=== PATIENT | male | born 1950 | race Caucasian/White ===

== ENCOUNTER 2017-04-06 09:19 | Inpatient (IN) | payer OTHER ==
--- NOTE | 2017-04-06 09:32 | CPEKG ---
Heart Rate: 50 RR Interval: 1200 P-R Interval: 184 QRSD Interval: 110 QT Interval: 460 QTC Interval: 420 P [place]: 59 QRS [place]: -5 T Wave [place]: 19 EKG Severity - ABNORMAL ECG - EKG Impression: SINUS RHYTHM EKG Impression: NONSPECIFIC INTRAVENTRICULAR CONDUCTION DELAY Electronically Signed By: Jemal Peace 06-Apr-2017 15:33:43
[2017-04-06] MEDS ORDERED: NS 1,000 ML IV ONE (09:33)
[2017-04-06] MEDS ORDERED: fentaNYL 100 MCG/2 ML INJ ONE (10:14)
[2017-04-06] MEDS ORDERED: FAMOTIDINE 20 MG/NACL/50 ML BAG IV ONE (10:14)
[2017-04-06] MEDS ORDERED: ONDANSETRON 4 MG/2 ML VIAL ONE (10:14)
[2017-04-06] MEDS ORDERED: fentaNYL 100 MCG/2 ML INJ IVP ONE ×3 (10:22→12:00)
[2017-04-06] MEDS ORDERED: ONDANSETRON 4 MG/2 ML VIAL IVP ONE ×3 (10:22→10:53)
[2017-04-06] MEDS ORDERED: levETIRAcetam 1,000 MG in NS 100 ML IV ONE (10:29)
[2017-04-06] MEDS ORDERED: niCARdipine/NACL 200 ML IV SCH (10:30)
[2017-04-06] MEDS ORDERED: niCARdipine/NACL 200 ML IV ONE (10:30)
[2017-04-06] MEDS ORDERED: FAMOTIDINE 20 MG/2 ML SDV IVP ONE (10:30)
[2017-04-06] MEDS ORDERED: IOPAMIDOL (ISOVUE 370) 100 ML BTL IV ONE (10:37)
--- NOTE | 2017-04-06 10:41 | EDPHY ---
H & P Time Seen by Provider: 04/06/17 09:32 HPI/ROS: HPI Headache. 67-year-old male by ambulance from home. Patient reports sudden onset worst headache of his life at 9:00 a.m.. Reports this was about a 0.5 hour after he took Viagra. He has never had headaches in the past. He denies any significant past medical history. He is not on any anticoagulant agents. He does take an aspirin daily. ROS: Constitutional: No fever, no chills. No weakness. Eyes: No discharge. No changes in vision. ENT: No sore throat. No nasal congestion or rhinorrhea. Respiratory: No cough. No shortness of breath. Cardiac: No chest pain, no palpitations. Gastrointestinal: No abdominal pain, no vomiting, no diarrhea. Genitourinary: No hematuria. No dysuria or increased frequency with urination. Musculoskeletal: No back pain. No neck pain. No myalgias or arthralgias. Skin: No rashes. Neurological: As above. No focal weakness or altered sensation. Past medical history: No significant past medical history. As above. Takes Crestor. Social history: Nonsmoker. Occasional alcohol. Here with his . Physical Exam: General Appearance: Alert, appears uncomfortable. This patient is responding to questions appropriately and in full sentences. This patient appears well- hydrated and well-nourished. Eyes: Pupils equal and round at 3-2 mm bilaterally, no pallor or injection. No lid edema, erythema or injection. ENT, Mouth: Mucous membranes are moist. The pharyngeal tissues are unremarkable. No edema or swelling. No asymmetry suggestive of abscess. No erythema or exudates. No toe lacerations or abrasions. Respiratory: There are no retractions, lungs are clear to auscultation with good air movement bilaterally. Cardiovascular: Regular rate and rhythm. No murmur. Gastrointestinal: Abdomen is soft and nontender, no masses, bowel sounds normal. No focal tenderness at McBurney's point. No Torres sign. Neurological: Motor sensory function is grossly intact. Cranial nerves are normal. Skin: Warm and dry, no rashes. Musculoskeletal: Neck is supple and nontender. Extremities are symmetrical. All joints range without pain or impingement. Psychiatric: No agitation. No depression. Database: EKG: EKG time is 9:25 a.m.; EKG shows a narrow complex normal sinus rhythm with a ventricular rate of 50. Nonspecific intraventricular conduction delay. The MN , QRS, QT intervals are within normal limits. There are no ST-T wave changes indicative of ischemic or injury pattern. No evidence of right heart strain. Interpreted by me. Imaging: CT of head without contrast: Extensive subarachnoid hemorrhage. Results were discussed with staff radiologist Dr. Jordan Cabral. CT angiogram of head and neck: No aneurysm found. Results were discussed with staff radiologist Dr. Jordan Cabral. He will discuss with Dr. Richard This. Procedures: Emergency department course: 10:10 p.m., spoke with on-call neurosurgeon Dr. Richard. He will see this patient shortly in the emergency department. He requested an ICU bed. He requested CT angiogram of the head and the neck. This has been ordered. He wants the patient systolic blood pressure tightly controlled to less than 130. Patient has been given IV fentanyl in 50 mcg doses for pain control. This will be repeated as needed for pain control. His blood pressure has come down into the 120 systolic. There is a nicardipine drip at the bedside and ready to go for further blood pressure control as needed. Patient also given 4 mg of IV Zofran and 20 mg of IV Pepcid. Head of the bed was elevated to 45 degrees. Patient placed on a site monitor. 10:30 a.m., patient re-evaluated. No change in neurologic status. Blood pressure currently 126/82. 10:45 a.m., Dr. Richard at bedside. 11:20 a.m., patient's blood pressures have remained stable in the 120 systolic. Patient admitted under the care of Dr. Richard to the ICU. Repeat neurologic Assessment prior to admission is unchanged from prior. Patient admitted to the ICU in stable condition. Differential Diagnosis: The differential diagnosis on this patient includes but is not limited to subarachnoid hemorrhage. Migraine headache, meningitis, encephalitis, cavernous sinus thrombosis, sagittal sinus thrombosis, malignancy, temporal arteritis unlikely. This represents a partial list of diagnoses considered. These considerations are based on history, physical exam, past history, reassessment and diagnostic testing. Smoking Status: Never smoked Constitutional: Initial Vital Signs Temperature (C) 36.5 C 04/06/17 09:30 Heart Rate 56 L 04/06/17 09:30 Respiratory Rate 20 04/06/17 09:30 Blood Pressure 158/98 H 04/06/17 09:30 O2 Sat (%) 92 04/06/17 09:30 O2 Delivery Mode Nasal Cannula O2 (L/minute) 4 Allergies/Adverse Reactions: No Known Drug Allergies Allergy (Verified 04/06/17 09:39) Home Medications: Medication Instructions Recorded Alfuzosin HCl [Uroxatral] 10 mg PO DAILY 04/06/17 Aspirin EC [Aspirin EC 81 mg (*)] 81 mg PO HS 04/06/17 Cetirizine [ZyrTEC 10 mg (*)] 10 mg PO DAILY 04/06/17 Fenofibrate [Tricor 145 mg (*)] 145 mg PO DAILY 04/06/17 Finasteride [Propecia] 1 mg PO HS 04/06/17 Herbals/Supplements -Info Only 1 ea PO DAILY 04/06/17 Ibuprofen [Advil] 200 mg PO PRN PRN 04/06/17 Melatonin [Melatonin 5 mg] 5 mg PO HS PRN 04/06/17 Meloxicam [Mobic 15 mg] 15 mg PO DAILY 04/06/17 Mirabegron [Myrbetriq] 50 mg PO HS 04/06/17 Montelukast Sodium [Singulair 10 10 mg PO DAILY 04/06/17 mg (*)] Nebivolol HCl [Bystolic 5 mg (*)] 5 mg PO DAILY 04/06/17 Rosuvastatin Calcium [Crestor 20mg 20 mg PO HS 04/06/17 (*)] Sildenafil Citrate [Viagra 50 MG 25 mg PO PRN PRN 04/06/17 (*)] diphenhydrAMINE [Benadryl 25 MG 25 mg PO PRN PRN 04/06/17 (*)] Medical Decision Making Critical Care Time: I spent a total of 42 minutes of critical care time in obtaining history, performing a physical exam, bedside monitoring of interventions, collecting and interpreting tests and discussion with consultants but not including time spent performing procedures. - Data Points Laboratory Results: Laboratory Results 04/06/17 09:30 04/06/17 09:30 Medications Given: Discontinued Medications Famotidine (Pepcid) 20 mg IVP EDNOW ONE Stop: 04/06/17 10:31 Last Admin: 04/06/17 10:32 Dose: 20 mg Fentanyl (Sublimaze) 50 mcg IVP EDNOW ONE Stop: 04/06/17 10:24 Last Admin: 04/06/17 10:32 Dose: 50 mcg Fentanyl (Sublimaze) 50 mcg IVP EDNOW ONE Stop: 04/06/17 10:23 Last Admin: 04/06/17 10:33 Dose: Not Given Fentanyl (Sublimaze) 50 mcg IVP ONCE ONE Stop: 04/06/17 12:01 Last Admin: 04/06/17 12:00 Dose: 50 mcg Sodium Chloride (Ns) 1,000 mls @ 0 mls/hr IV ONCE ONE; Wide Open PRN Reason: Protocol Stop: 04/06/17 09:34 Last Admin: 04/06/17 09:39 Dose: 1,000 mls Levetiracetam 1,000 mg/ Sodium (Chloride) 110 mls @ 440 mls/hr IV EDNOW ONE Stop: 04/06/17 10:43 Last Admin: 04/06/17 11:12 Dose: 110 mls Nicardipine/Sodium Chloride (Cardene 0.1 Mg/Ml (Premix)) 200 mls @ 0 mls/hr IV EDNOW ONE; Titrate PRN Reason: Protocol Stop: 04/06/17 10:31 Last Admin: 04/06/17 11:18 Dose: 200 mls Famotidine/Sodium Chloride (Pepcid 20 Mg (Premix)) 50 mls @ 200 mls/hr IV EDNOW ONE Stop: 04/06/17 11:06 Last Admin: 04/06/17 12:13 Dose: Not Given Ondansetron HCl (Zofran) 4 mg IVP EDNOW ONE Stop: 04/06/17 10:31 Last Admin: 04/06/17 10:32 Dose: 4 mg Ondansetron HCl (Zofran) 4 mg IVP EDNOW ONE Stop: 04/06/17 10:23 Last Admin: 04/06/17 10:32 Dose: Not Given Ondansetron HCl (Zofran) 4 mg IVP ONCE ONE Stop: 04/06/17 10:54 Last Admin: 04/06/17 11:15 Dose: 4 mg Promethazine HCl (Phenergan) 6.25 mg IVP ONCE ONE Stop: 04/06/17 10:54 Last Admin: 04/06/17 11:15 Dose: 6.25 mg Departure - Departure Disposition: [facility] Acute Clinical Impression: Subarachnoid hemorrhage Condition: Fair
[2017-04-06 10:48] LABS: % IMMATURE GRANULYOCYTES 0.5 % (0.0-1.1); ABSOLUTE IMMATURE GRANULOCYTES 0.03 10^3/uL (0.00-0.10); ADD DIFF? NO; ADD MORPH? NO; ADD SCAN? NO; ATYPICAL LYMPHOCYTE FLAG 0 (0-99); FRAGMENT RBC FLAG 0 (0-99); HEMATOCRIT 41.3 % (40.0-51.0); HEMOGLOBIN 14.4 g/dL (13.7-17.5); LEFT SHIFT FLG 0 (0-99); LIPEMIA HEMOLYSIS FLAG 90 (0-99); MEAN CELL HEMOGLOBIN 30.9 pg (27.9-34.1); MEAN CELL HEMOGLOBIN CONCENTR. 34.9 g/dL (32.4-36.7); MEAN CELL VOLUME 88.6 fL (81.5-99.8); MEAN PLATELET VOLUME 11.8 fL (8.7-11.7); PLATELET CLUMPS FLAG 0 (0-99); PLATELET COUNT 197 10^3/uL (150-400); RED BLOOD CELL COUNT 4.66 10^6/uL (4.40-6.38); RED CELL DISTRIBUTION WIDTH 13.2 % (11.5-15.2)
[2017-04-06 10:50] LABS: ANION GAP 13 mEq/L (8-16); CALCIUM 9.9 mg/dL (8.5-10.4); CARBON DIOXIDE 20 mEq/l (22-31); CHLORIDE 104 mEq/L (97-110); CREATININE 1.3 mg/dL (0.7-1.3); GLOMERULAR FILTRATION RATE 55; GLUCOSE 139 mg/dL (70-100); POTASSIUM 3.9 mEq/L (3.5-5.2); SODIUM 137 mEq/L (134-144)
[2017-04-06] MEDS ORDERED: FAMOTIDINE 20 MG/NACL 50 ML IV ONE (10:52)
[2017-04-06] MEDS ORDERED: PROMETHAZINE HCL 25 MG/ML INJ ONE (10:52)
[2017-04-06] MEDS ORDERED: PROMETHAZINE HCL 25 MG/ML INJ IVP ONE (10:53)
[2017-04-06] MEDS ORDERED: NS 1,000 ML IV SCH (11:15)
[2017-04-06] MEDS: niMODipine 30 MG CAP PO SCH ×3 (13:08→21:59)
--- NOTE | 2017-04-06 13:51 | GHP ---
[f rep st] HISTORY AND PHYSICAL DATE OF ADMISSION: 04/06/2017 CHIEF COMPLAINT: Headache. HISTORY OF PRESENT ILLNESS: The patient is a 67-year-old male patient who was brought to the emergency room via ambulance. He reported the worst headache of his life after 9:00 a.m. He had taken a Viagra around 7:30 this morning and then he and his made love. About a minute after they made love, he had a severe pain in the back of his neck that then spread into his head with a headache. He states he broke out in a sweat and he and his were concerned and EMS was called. The patient does take a baby aspirin but is not on any other anticoagulants. On examination today in the emergency room, the patient is resting in bed. He was recently given some fentanyl. His is at his bedside. He states he has never had a headache like this before. Currently denies any nausea, vomiting, worsening weakness in his arms or legs, numbness or tingling or other associated symptoms. REVIEW OF SYSTEMS: Please see above mentioned in the HPI. PAST MEDICAL HISTORY: The patient takes Crestor. He takes Coreg for high blood pressure. He also takes some medications for BPH. SOCIAL HISTORY: The patient is a nonsmoker. He is . He denies any drug or tobacco use. He drinks alcohol socially. His states he had about 6 glasses of wine over the course of the evening last night. FAMILY HISTORY: No family history of brain lesions or aneurysms. He did have a family member who had a stroke, he believes it was his grandfather. PHYSICAL EXAMINATION: VITAL SIGNS: Blood pressure 128/73, heart rate 52, respirations 16, O2 saturation is 95% on 4 L of oxygen via nasal cannula. GENERAL: This is a well-developed, well-nourished male patient. He appears anxious and uncomfortable in bed. NEUROLOGIC: His cranial nerves are grossly intact without any obvious deficits. His extraocular movements are intact. His sclerae are anicteric. He has intact sensation over his face. His facial movements are symmetric without a facial droop noted. His tongue protrudes midline. His speech is fluent. He has intact hearing although diminished bilaterally. He has a symmetric shoulder shrug bilaterally. Motor examination of the bilateral upper extremities is 5/5 and also 5/5 for bilateral lower extremities. He reports intact sensation throughout the normal dermatomal distribution of his body. No pronator drift is noted. LABORATORY: White blood cells 6.22, red blood cells 4.66, hemoglobin 14.4, hematocrit 41.3, MCV 88.6, RDW 13.2, platelet count 197. Sodium 138, potassium 3.9, chloride 101, carbon dioxide 20, anion gap 13, BUN 17, creatinine 1.3, GFR of 55, glucose 139, calcium 9.9. IMAGING: CT of the head at 9:33 a.m.: Subarachnoid hemorrhage with mild prominence of the lateral ventricles but no evidence of subfalcine or transtentorial herniation. Head and neck CTA report is pending but images were reviewed by Dr. Richard and no obvious aneurysm was observed. IMPRESSION: This is a 67-year-old male patient with acute onset of headache and evidence of subarachnoid hemorrhage on imaging. There was no obvious aneurysm on imaging but final radiology report is still pending. PLAN: Dr. Richard and I have seen the patient together in the emergency room at approximately 11:00 a.m. today. At this time, the patient will be admitted to ICU with close monitoring with q.1 hour neurologic checks. I would like to keep his systolic blood pressure less than 130 and medications have been ordered for this. Will await the final radiology report of his CTA. We discussed with the patient and his that we may recommend formal angiogram to further rule out aneurysm. Have the patient work with Physical Therapy, Occupational Therapy, and also Speech Therapy while he is here in the hospital. He will be on Nimotop for vasospasm for 21 days total. We would like to avoid narcotics so that we can get a good neuro exams for him. He can take Tylenol for his headache. I would like to let him wake up a little bit more before we let him eat and also see what the final report is on his CTA. Please contact the neurosurgery service with any additional questions or concerns. /[id number]/MODL MTDD
[2017-04-06] MEDS ORDERED: LIDOCAINE 1% 300 MG/30 ML SDV ONE (14:53)
--- NOTE | 2017-04-06 16:41 | GCON ---
[f rep st] CONSULTATION PULMONARY/CRITICAL CARE CONSULTATION DATE OF CONSULTATION: 04/06/2017 REFERRING PHYSICIAN: Dm Richard MD REASON FOR CONSULTATION: Evaluation and management of hypertension in the setting of a subarachnoid hemorrhage. HISTORY: This patient is a 67-year-old gentleman who is visiting [place] from [place] along with his . He was in his usual state of good health when this morning he developed the worst headac he in his life shortly after 9:00 a.m., after taking Viagra and having sex with his . The pain started in the back of his neck and spread to his headache. He broke out in a sweat, and because th e headache was so severe and usual, they called EMS who brought the patient to the emergency departm ent. He was given some fentanyl, and a CT scan in the emergency room demonstrated a subarachnoid he morrhage. He was seen by Dr. Richard and transferred to the intensive care unit. He currently states that he still has a very severe headache, primarily in his occipital area. He d enies nausea or vomiting currently, and does not have diaphoresis. PAST MEDICAL HISTORY: Hypertension and hypercholesterolemia. MEDICATIONS: Bystolic, Crestor, Singulair, Myrbetriq, baby aspirin, Viagra, melatonin, Zyrtec. ALLERGIES: None. SOCIAL HISTORY: The patient lives in [place] with his and was visiting his daughter here, wh o just graduated from . He denies tobacco. He drinks alcohol socially. FAMILY HISTORY: Negative. REVIEW OF SYSTEMS: A 10-point review of systems adds nothing to the history of present illness. PHYSICAL EXAMINATION: GENERAL: The patient is somnolent, but arousable. Conversant and appropriat e. VITAL SIGNS: His blood pressure is 120/80 with a heart rate of 64. His blood pressure was 158/ 98 with a heart rate of 56 at the time of admission. He is afebrile. Oxygen saturations are 93% on 4 L. HEENT: Normocephalic and atraumatic. No icterus. NECK: No lymphadenopathy. Trachea is mi dline. CHEST: Clear to auscultation. CARDIAC: Regular rate and rhythm, without murmur. ABDOMEN: Soft, nontender. Bowel sounds are present. EXTREMITIES: No clubbing, cyanosis, or edema. NEURO : The patient is alert and oriented x3. His speech is appropriate and fluent. He has no gross sen monae or motor deficits. LABORATORY: Hemoglobin is 12.9 down from 14.4. Chemistry group was normal. Glucose is 126. IMAGING: A CT scan of the head shows subarachnoid an extensive subarachnoid hemorrhage. Images rev iewed. CT angiogram of the head and neck does not demonstrate any aneurysm or other lesions. ASSESSMENT: 1. Subarachnoid hemorrhage. This occurred acutely this morning. The patient is on low-dose aspiri n. He is currently neurologically intact, but does continue to have a significant headache. 2. Hypertension. The patient has chronic hypertension and was hypertensive at admission. His bloo d pressure is now normal. RECOMMENDATIONS: The patient's Bystolic will be resumed. He has been given nimodipine to help redu ce the risk of vasospasm. He will be given nicardipine p.r.n. to help maintain a systolic blood pre ssure less than 130, which is the goal of the neurosurgeons. If that is ineffective, hydralazine wi ll be used. /[id number]/MODL
[2017-04-06] MEDS: ACETAMINOPHEN 325 MG TAB PO PRN (17:11)
[2017-04-06] MEDS: hydrALAZINE 20 MG/ML VIAL IVP PRN (19:49)
[2017-04-06] MEDS: ROSUVASTATIN CALCIUM 20 MG TAB PO SCH (21:59)
[2017-04-06] MEDS: ACET/CAFFEINE/BUTA FIORICET 1 EACH TAB PO PRN (21:59)
[2017-04-06] MEDS: Finasteride [Propecia] 1 MG PO SCH (22:10)
[2017-04-06] MEDS: Mirabegron [Myrbetriq] 50 MG PO SCH (22:11)
[2017-04-06] MEDS: traMADol 50 MG TAB PO PRN (23:56)
[2017-04-07] MEDS: niMODipine 30 MG CAP PO SCH ×6 (02:23→21:56)
[2017-04-07] MEDS: ACETAMINOPHEN 325 MG TAB PO PRN (02:23)
[2017-04-07] MEDS: ACET/CAFFEINE/BUTA FIORICET 1 EACH TAB PO PRN ×3 (06:11→21:56)
[2017-04-07] MEDS: ALFUZOSIN HCL 10 MG PO SCH (09:38)
[2017-04-07] MEDS: CETIRIZINE 10 MG TAB PO SCH (09:39)
[2017-04-07] MEDS: FENOFIBRATE 145 MG TAB PO SCH (09:39)
[2017-04-07] MEDS: MONTELUKAST SODIUM 10 MG TAB PO SCH (09:40)
[2017-04-07] MEDS ORDERED: MAGNESIUM HYDROXIDE 30 ML UDCUP PO PRN (09:44)
[2017-04-07] MEDS: NEBIVOLOL HCL 5 MG TAB PO SCH (09:45)
[2017-04-07] MEDS ORDERED: GADOBUTROL 10 ML VIAL IVP ONE (10:04)
--- NOTE | 2017-04-07 10:22 | NEUSURGPN ---
Assessment/Plan: Assessment: 67 yo male that was admitted with spontaneous post coital FREEMAN with SAH Plan: -pt with mild FREEMAN this am -pt with some mild right calf pain-US ordered -no new events overnight -CTA was negative -on Nimotop -Keppra in ED only -PT/OT/ST -HOB up -pt with pending MRI/MRA this am -consented for angiogram later today -call with any questions or concerns -pt and son understand plan and agree Subjective: Awake and alert. No new complaints or concerns. Pt with mild FREEMAN. No neck/ chest/abd or gu complaints. Pt with some right calf pain Objective: AAO x 3, PERRLA/EOMI no droop CN 2-12 grossly intact +lt touch 5/5 BUE/BLE = Neuro Check Frequency: per routine Urinary Catheter in Place: No - Physician Discussed Patient with : Lizeth Patient Seen by : Lizeth Neurosurgery Physical Exam - Vitals, I&O, Labs I and O 04/06/17 04/07/17 04/08/17 05:59 05:59 05:59 Intake Total 3591 Output Total 2450 720 Balance 1141 -720 Weight 128.6 kg Intake: Oral (ml) 450 IV Infused (ml) 3141 Ns 1,000 ml @ 70 mls/hr 1501 IV CONT NIA Rx#: [id number] niCARdipine/NACL 200 ml @ 640 Titrate IV CONT NIA Rx#: [id number] Output: Urine (ml) 2450 720 Urinal 2450 720 Other: Intake Quantity Yes Sufficient Number of Voids Urinal 4 Vital Signs Temp Pulse Resp BP Pulse Ox 36.8 C 69 20 134/70 H 96 04/07/17 07:00 04/07/17 09:45 04/07/17 09:00 04/07/17 09:45 04/07/17 09:00 ICD10 Worksheet Patient Problems: Problems Problem Status Onset Subarachnoid hemorrhage Acute
[2017-04-07] MEDS: traMADol 50 MG TAB PO PRN ×2 (15:03→21:12)
--- NOTE | 2017-04-07 15:49 | PDINTPN ---
[facility] Progress Note Assessment/Plan: Assessment: Status post subarachnoid hemorrhage. The etiology remains unclear. For angiogram later today. No aneurysm identified thus far with CT scans or MRA. Headache under adequate control. Hypertension. On Bystolic, with nimodipine for spasm. On p.r.n. nicardipine. Blood pressure is well controlled, have remained under 140 systolic. History rhinitis, allergies. History of atrial fibrillation, status post ablation 5 years ago. Plan: Continue present care in the intensive care unit. Continue nimodipine and blood pressure control. Pain control as needed. Follow neurologic status. Await angiogram results... Discussed with the patient, his family, nursing, and the ICU multi disciplinary team. 25 minutes of critical care time spent directly with the patient. Subjective: Doing well. Headache present but relatively mild. Denies neurologic deficits. Complains of constipation. Objective: Vital Signs Temp Pulse Resp BP Pulse Ox 36.6 C 64 13 133/71 H 95 04/07/17 15:00 04/07/17 15:00 04/07/17 15:00 04/07/17 15:00 04/07/17 15:00 04/06/17 04/07/17 04/08/17 05:59 05:59 05:59 Intake Total 3591 Output Total 2450 1320 Balance 1141 -1320 MRI/MRA: No definite aneurysm or bleeding source. Cerebral angiogram pending. Right lower extremity venous Doppler ultrasound negative for evidence of DVT. Physical Exam - Physical Exam General Appearance: alert, mild distress EENT: PERRL/EOMI, normal ENT inspection, other (Nasal cannula at 2 L) Neck: normal inspection (No JVD) Respiratory: lungs clear, normal breath sounds Cardiac/Chest: regular rate, rhythm, bradycardia Abdomen: normal bowel sounds, non-tender, soft Skin: normal color, warm/dry Extremities: No pedal edema Neuro/Psych: no motor/sensory deficits, No cognition abnormalities ICD10 Worksheet Patient Problems: Problems Problem Status Onset Subarachnoid hemorrhage Acute
[2017-04-07] MEDS ORDERED: IOPAMIDOL (ISOVUE-300) 100 ML BTL ONE ×2 (15:59→19:01)
[2017-04-07] MEDS ORDERED: fentaNYL 100 MCG/2 ML INJ ONE (17:18)
[2017-04-07] MEDS ORDERED: PROPOFOL/EMULSION 500 MG/50 ML BOTTLE IV ONE (17:21)
[2017-04-07] MEDS ORDERED: MIDAZOLAM 2 MG/2 ML VIAL ONE (17:41)
[2017-04-07] MEDS ORDERED: PROPOFOL 200 MG/20 ML VIAL ONE (18:16)
--- NOTE | 2017-04-07 19:22 | POSTOPPROG ---
Post Op Note Date of Operation: 04/07/17 Surgeon: [employer] Loader: none Anesthesia: IV Sedation Pre-op Diagnosis: SAH Post-op Diagnosis: SAH Indication: SAH Procedure: diagnostic cerebral angiogram Findings: no obvious pathology to explain SAH (6 vessels) Inf/Abcess present in the surg proc area at time of surgery?: No EBL: Minimal Complications: none
[2017-04-07] MEDS: SENNOSIDES/DOCUSATE SODIUM TAB PO SCH (21:13)
[2017-04-07] MEDS: ROSUVASTATIN CALCIUM 20 MG TAB PO SCH (21:14)
[2017-04-07] MEDS: Finasteride [Propecia] 1 MG PO SCH (21:15)
[2017-04-07] MEDS: Mirabegron [Myrbetriq] 50 MG PO SCH (21:15)
[2017-04-08] MEDS: NS W/ 20 KCl/L 1,000 ML IV SCH ×3 (01:00→23:59)
[2017-04-08] MEDS: niMODipine 30 MG CAP PO SCH ×6 (01:58→21:34)
[2017-04-08] MEDS: traMADol 50 MG TAB PO PRN ×2 (04:28→13:36)
[2017-04-08] MEDS: hydrALAZINE 20 MG/ML VIAL IVP PRN ×2 (06:51→11:37)
[2017-04-08] MEDS: CETIRIZINE 10 MG TAB PO SCH (07:48)
[2017-04-08] MEDS: NEBIVOLOL HCL 5 MG TAB PO SCH (07:48)
[2017-04-08] MEDS: FENOFIBRATE 145 MG TAB PO SCH (07:48)
[2017-04-08] MEDS: ACET/CAFFEINE/BUTA FIORICET 1 EACH TAB PO PRN ×2 (07:49→14:52)
[2017-04-08] MEDS: SENNOSIDES/DOCUSATE SODIUM TAB PO SCH ×2 (07:49→19:31)
[2017-04-08] MEDS: MONTELUKAST SODIUM 10 MG TAB PO SCH (07:49)
[2017-04-08] MEDS: FAMOTIDINE 20 MG TAB PO SCH ×2 (08:24→19:31)
[2017-04-08] MEDS: METHOCARBAMOL 750 MG TAB PO SCH ×4 (08:24→23:47)
[2017-04-08] MEDS ORDERED: CALCIUM CARBONATE 500 MG CHEWABLE TAB PO PRN (08:25)
--- NOTE | 2017-04-08 08:31 | NEUSURGPN ---
Assessment/Plan: Assessment: 67 yo male that was admitted with spontaneous post coital FREEMAN with SAH Plan: -pt with mild FREEMAN this am - primarily neck pain -pt with some calf pain-US ordered and was negative -Add muscle relaxants and pepcid -no new events overnight -CTA was negative -Formal angiogram negative -MRA shows improving vasospasm, MRI with expected SAH -on Nimotop for 21 days total -SBP <140 -PT/OT/ST -HOB up -call with any questions or concerns -D/w Dr Richard Subjective: Pt resting in chair. C/o posterior neck pain and leg cramping. Objective: AAOx3 NAD VSS No droop Motor 5/5 BUE/BLE +LT Urinary Catheter in Place: No - Physician Discussed Patient with : Jose Manuel Neurosurgery Physical Exam - Vitals, I&O, Labs I and O 04/07/17 04/08/17 04/09/17 05:59 05:59 05:59 Intake Total 3591 2562 Output Total 2450 3120 Balance 1141 -558 Weight 128.6 kg Intake: Oral (ml) 450 1450 IV Infused (ml) 3141 1112 NS W/ 20 KCl/L 1,000 ml @ 1112 100 mls/hr IV CONT NIA Rx#:[id number] Ns 1,000 ml @ 70 mls/hr 1501 IV CONT NIA Rx#: [id number] niCARdipine/NACL 200 ml @ 640 Titrate IV CONT NIA Rx#: [id number] Output: Urine (ml) 2450 3120 Urinal 2450 3120 Other: Intake Quantity Yes Sufficient Number of Voids Urinal 4 1 Vital Signs Temp Pulse Resp BP Pulse Ox 37 C 69 16 147/73 H 95 04/08/17 01:00 04/08/17 07:48 04/08/17 06:00 04/08/17 07:48 04/08/17 06:00 ICD10 Worksheet Patient Problems: Problems Problem Status Onset Subarachnoid hemorrhage Acute
[2017-04-08] MEDS: ALFUZOSIN HCL 10 MG PO SCH (09:46)
[2017-04-08] MEDS ORDERED: IOPAMIDOL (ISOVUE 370) 100 ML BTL IV ONE ×2 (12:42→13:29)
[2017-04-08] MEDS ORDERED: NS 1,000 ML IV ONE (12:43)
[2017-04-08] MEDS ORDERED: fentaNYL 100 MCG/2 ML INJ IVP ONE (16:14)
[2017-04-08] MEDS ORDERED: fentaNYL 100 MCG/2 ML INJ ONE (16:16)
--- NOTE | 2017-04-08 16:49 | PDINTPN ---
[employer] Progress Note Assessment/Plan: Assessment: Status post subarachnoid hemorrhage. The etiology remains unclear. Angiogram did not show an aneurysm. Exact bleeding site not identified. Neurologic changes consistent with possible spasm. Hydrocephalus also may be playing a role. For ICP placement and drainage tonight. Headache: Somewhat worse today. Please see the comments above. Hypertension. On nimodipine for spasm. Anti hypertensives to be used judiciously. Obviously a difficult situation as high blood pressures may cause recurrent bleeding, too low may be associated with vaso spasm. History rhinitis, allergies. History of atrial fibrillation, status post ablation 5 years ago. Plan: Continue care in the intensive care unit. Drain to be placed this afternoon, ICP monitors. Blood pressure will be allowed to come up to 140 systolic. Nimodipine to continue. Discussed with the patient's family, neuro surgery, nursing, the ICU multi disciplinary team. Subjective: Complains of headache. Was doing well this morning, then had neurologic changes. These are consistent with spasm. Neuro surgery aware. Objective: Vital Signs Temp Pulse Resp BP Pulse Ox 37 C 73 14 144/62 H 97 04/08/17 15:00 04/08/17 16:00 04/08/17 16:00 04/08/17 16:00 04/08/17 16:00 04/07/17 04/08/17 04/09/17 05:59 05:59 05:59 Intake Total 3591 2562 1000 Output Total 2450 3120 1060 Balance 1141 -558 -60 CTA of the head without obvious vaso spasm. Ventricles larger, consistent with hydrocephalus. Physical Exam - Physical Exam General Appearance: mild distress (Secondary to headache), other (More lethargic , repetitive, mildly confused) EENT: PERRL/EOMI, other (Nasal cannula at 2 L) Neck: No full range of motion, No supple (Complains of pain with movement) Respiratory: lungs clear, No rales, No rhonchi Cardiac/Chest: regular rate, rhythm Abdomen: normal bowel sounds, non-tender, soft Male Genitalia: other (No Marcum catheter) Skin: normal color, warm/dry Extremities: No pedal edema Neuro/Psych: no motor/sensory deficits (Moves all extremities, sensation appears intact), No cognition abnormalities (Mild) ICD10 Worksheet Patient Problems: Problems Problem Status Onset Subarachnoid hemorrhage Acute
--- NOTE | 2017-04-08 17:35 | NEUSURGPN ---
Assessment/Plan: Right sided EVD placed in ICU. EVD open to drain at 10mm Hg. Q1 hour neuro checks overnight. Please call NS with any neuro changes. Exam s/p EVD placement: patient is awake and alert. Oriented to person/place/ month. MAEx4, Follows all commands. Motor 5/5 BUE/BLE EVD with clear CSF in line, slight pink tinge. - Physician Discussed Patient with .: Danny Patient Seen by Dr.: Danny Neurosurgery Physical Exam - Vitals, I&O, Labs I and O 04/07/17 04/08/17 04/09/17 05:59 05:59 05:59 Intake Total 3591 2562 1800 Output Total 2450 3120 1416 Balance 1141 -558 384 Weight 128.6 kg Intake: Oral (ml) 450 1450 300 IV Intake (ml) 1000 IV Infused (ml) 3141 1112 500 NS W/ 20 KCl/L 1,000 ml @ 1112 500 100 mls/hr IV CONT NIA Rx#:[id number] Ns 1,000 ml @ 70 mls/hr 1501 IV CONT NIA Rx#: [id number] niCARdipine/NACL 200 ml @ 640 Titrate IV CONT NIA Rx#: [id number] Output: Urine (ml) 2450 3120 1410 Urinal 2450 3120 1410 CSF Drainage Amount 6 Ventriculostomy 6 Other: Intake Quantity Yes Sufficient Number of Voids Urinal 4 1 Number of Stools Urinal 0 Vital Signs Temp Pulse Resp BP Pulse Ox 37 C 73 18 123/69 H 96 04/08/17 15:00 04/08/17 17:00 04/08/17 17:00 04/08/17 17:00 04/08/17 17:00 ICD10 Worksheet Patient Problems: Problems Problem Status Onset Subarachnoid hemorrhage Acute
[2017-04-08] MEDS ORDERED: ceFAZolin 2 GM in D5W 100 ML IV SCH (19:15)
[2017-04-08] MEDS: ceFAZolin 2 GM/DEXTROSE 100 ML IV SCH (19:23)
[2017-04-08] MEDS: ROSUVASTATIN CALCIUM 20 MG TAB PO SCH (19:31)
--- NOTE | 2017-04-08 20:04 | GCON ---
[f rep st] CONSULTATION MEDICINE CONSULTATION DATE OF CONSULTATION: 04/08/2017 CHIEF COMPLAINT: I responded to an inpatient stroke alert, and subsequently was asked by Neurology to formally consult. HISTORY OF PRESENT ILLNESS: The patient is a 67-year-old male with a history of hypertension, hyperlipidemia, and benign prostatic hypertrophy who presented to the emergency department via EMS reporting a sudden onset severe headache. This occurred shortly after intercourse. He developed a severe pain in his neck and head. This was associated with diaphoresis and due to the severe pain , 911 was called. Prior to this event, he had not complained of any headaches, chest pain, shortness of breath, fever, cough, abdominal pain, nausea, vomiting , or diarrhea. He does take a baby aspirin daily. Upon arrival to the emergency department, he underwent a stat head CT, which showed a subarachnoid hemorrhage but no evidence of herniation. A followup CT angiogram of the head and neck showed no evidence of aneurysm, though some equivocal luminal irregularity associated with A-1 segments were noted, possibly related to focal vasospasm. There was no hemodynamically significant stenosis or vascular abnormality on the cervical portions of the angiogram. Neurosurgery was immediately consulted. The patient was admitted to the intensive care unit under Neurosurgery Service. On the morning of this consultation, the patient developed abrupt mental status changes, became unresponsive, was not following commands. Stat head CT was repeated and showed moderate hydrocephalus, likely obstructive in nature related to his subarachnoid hemorrhage. I evaluated the patient and followed him to the CT scanner for further imaging studies. Neurosurgery was notified. PAST MEDICAL HISTORY: 1. Hypertension. 2. Hyperlipidemia. 3. Benign prostatic hypertrophy. MEDICATIONS: Please see [facility] for complete updated outpatient medication list. ALLERGIES: He has no known drug allergies. FAMILY HISTORY: Negative for brain aneurysms, though positive for stroke in his grandfather. SOCIAL HISTORY: The patient is . His son is at the bedside today. He is a nonsmoker. There is no history of drug use. He reports social alcohol use , though his noted that he had 6 glasses of wine the evening prior to this event. REVIEW OF SYSTEMS: A 10-point review of systems was performed and is negative except as per HPI. OBJECTIVE: VITAL SIGNS: Temperature is 37 degrees, blood pressure 161/81, heart rate 80, respiratory rate 17. He is 94% on 2 L. GENERAL: The patient is obtunded. He responds to painful stimuli, though is not following commands. HEENT: Head is atraumatic, normocephalic. Pupils equal, round, and reactive to light. Oropharynx is clear. Mucous membranes are moist. NECK: Supple. There is no JVD. HEART: Regular rate and rhythm. LUNGS: Clear to auscultation bilaterally. ABDOMEN: Soft, nondistended, nontender, with normoactive bowel sounds. EXTREMITIES: Without cyanosis, clubbing, or edema. NEUROLOGIC: The patient was not following commands on initial exam. His pupils are reactive. He has intermittent involuntary movements of all extremities. IMAGING STUDIES: Stat noncontrast head CT showed new moderate obstructive hydrocephalus, likely due to intraventricular hemorrhage in the 4th ventricle which is new from 2 days ago. There was no evidence of acute ischemia. The subarachnoid hemorrhage and mild mass effect were not significantly changed. Head CT angiogram showed patent anterior and posterior circulations with no evidence of large-vessel occlusion, embolic disease or vasospasms, with a patent venous system. ASSESSMENT AND PLAN: The patient is a 67-year-old male with a history of hypertension, hyperlipidemia, benign prostatic hypertrophy who was admitted to the hospital by the neurosurgery service for subarachnoid hemorrhage, and was seen by Medicine today due to inpatient Stroke Alert with acute neurologic changes. 1. Subarachnoid hemorrhage causing moderate obstructive hydrocephalus: STAT head CT was ordered upon notification of acute neurologic decompensation. I followed pt to the CT scanner, which revealed hydrocephalus. CTA was performed which was neg for occlusion. Case was discussed with Lizette Storm, neurosurgery PA. A ventriculostomy drain was placed by Dr. Zack Delgado and we will continue intracranial pressure monitoring. At this time, the recommended goal blood pressure is 160 systolic. Nimodipine is ordered to maintain this goal, trying to avoid hypotension to reduce the risk of vasospasm. On repeat exam later in the afternoon, the patient is mentating much more clearly and overall, his condition is improved. 2. Hypertension: As above, goal blood pressure is currently 160 systolic. We will discuss with Neurosurgery if we want to lower this to 140 systolic. We are weighing the risk of bleeding with the risk of vasospasm. As above, we will continue p.r.n. nimodipine and daily nebivolol. 3. Hyperlipidemia: The patient will continue to receive a statin and fenofibrate. 4. Benign prostatic hypertrophy: Continue finasteride. 5. Disposition: Continue inpatient care in ICU. 6. Code status: Patient is full code. 7. Deep venous thrombosis prophylaxis: Pharmacologic prophylaxis is contraindicated in the setting of intraventricular hemorrhage. SCDs are ordered. 45 minutes spent providing critical care. Thank you for this consultation. Medicine will follow. Please do not hesitate to contact us with any questions or concerns. /[id number]/MODL MTDD
[2017-04-08] MEDS: Mirabegron [Myrbetriq] 50 MG PO SCH (21:00)
[2017-04-08] MEDS: Finasteride [Propecia] 1 MG PO SCH (21:00)
--- NOTE | 2017-04-08 21:39 | GOP ---
[f rep st] OPERATIVE REPORT DATE OF OPERATION: 04/08/2017 SURGEON: Fausto Delgado MD NEUROSURGEON: Fausto Delgado MD. PURE CULTURE OPERATOR: LUIS Preciado PAC PREOPERATIVE DIAGNOSIS: Hydrocephalus. POSTOPERATIVE DIAGNOSIS: Hydrocephalus. PROCEDURE PERFORMED: Right frontal ventriculostomy placement for hydrocephalus via twist drill. FINDINGS: ESTIMATED BLOOD LOSS: Less than 10 cc. INDICATIONS: The patient is a 67-year-old gentleman with a subarachnoid hemorrhage of unknown etiol ogy, who developed altered mental status today and developed progressive hydrocephalus on serial sca ns. We suggested ventriculostomy placement to the patient and his family. The risk of hemorrhage i nto the brain, infection, malposition of the catheter, failure of the catheter, need for catheter re placements, damage the internal structure of the brain, stroke, paralysis, and were discussed. The risk of this was low but they understood this was a potential. DESCRIPTION OF PROCEDURE: The patient was gently sedated with some fentanyl, his head secured to e bed. He was sterilely prepped and draped in the usual fashion. A 1 cm incision was made above Ko kristy's point. Took a twist drill, and drilled a hole in the right frontal region about 2 cm in fron t of the coronal suture and about 2.5 cm off the midline. We then punctured the underlying dura and then introduced a ventriculostomy catheter to a depth of 7 cm from the skin surface and encountered the ventricular system. CSF rushed through the ventricular catheter and out the tip of the cathete r in its fully extended position for an ICP of greater than 30 cm of water. It was then tunneled an d secured in place. The incision was closed with suture. The patient tolerated the procedure well. The ventriculostomy catheter was connected to a ventricular drainage bag by an ICU-trained nurse f or neuro ICU. There were no complications. There was only a single pass made of the ventricular ca theter. COMPLICATIONS: None. /[id number]/MODL
[2017-04-09] MEDS: ACETAMINOPHEN 325 MG TAB PO PRN ×3 (00:05→13:55)
[2017-04-09] MEDS: ceFAZolin 2 GM/DEXTROSE 100 ML IV SCH ×2 (01:58→11:08)
[2017-04-09] MEDS: niMODipine 30 MG CAP PO SCH ×6 (01:58→21:53)
[2017-04-09] MEDS: traMADol 50 MG TAB PO PRN ×3 (05:20→17:43)
[2017-04-09 05:50] LABS: % IMMATURE GRANULYOCYTES 0.6 % (0.0-1.1); ABSOLUTE IMMATURE GRANULOCYTES 0.06 10^3/uL (0.00-0.10); ADD DIFF? NO; ADD MORPH? NO; ADD SCAN? NO; ATYPICAL LYMPHOCYTE FLAG 10 (0-99); FRAGMENT RBC FLAG 0 (0-99); HEMATOCRIT 37.6 % (40.0-51.0); HEMOGLOBIN 12.7 g/dL (13.7-17.5); LEFT SHIFT FLG 10 (0-99); LIPEMIA HEMOLYSIS FLAG 90 (0-99); MEAN CELL HEMOGLOBIN 30.5 pg (27.9-34.1); MEAN CELL HEMOGLOBIN CONCENTR. 33.8 g/dL (32.4-36.7); MEAN CELL VOLUME 90.4 fL (81.5-99.8); MEAN PLATELET VOLUME 10.7 fL (8.7-11.7); PLATELET CLUMPS FLAG 10 (0-99); PLATELET COUNT 159 10^3/uL (150-400); RED BLOOD CELL COUNT 4.16 10^6/uL (4.40-6.38); RED CELL DISTRIBUTION WIDTH 13.4 % (11.5-15.2)
[2017-04-09 06:12] LABS: ANION GAP 10 mEq/L (8-16); CARBON DIOXIDE 21 mEq/l (22-31); CHLORIDE 104 mEq/L (97-110); GLOMERULAR FILTRATION RATE > 60; GLUCOSE 95 mg/dL (70-100); MAGNESIUM 1.6 mg/dL (1.6-2.3); POTASSIUM 4.1 mEq/L (3.5-5.2); SODIUM 135 mEq/L (134-144)
[2017-04-09] MEDS: ACET/CAFFEINE/BUTA FIORICET 1 EACH TAB PO PRN ×3 (06:35→20:15)
--- NOTE | 2017-04-09 07:57 | SOAPPROG ---
SOAP Progress Note Assessment/Plan: Assessment: 67 yo M with SAH sp EVD placement Plan: neuro: stable, headaches improved with EVD placement :) no need for repeat head CT unless his neuro exam changes continue Q1 hour neuro checks please keep SBP < 140 mmhg PT/OT/ST on ancef 1g q8 hours for 3 doses on nimodipine for vasospam prophylaxis scd/domenico for dvt prophylaxis please call with neuro changes discussed with Dr Delgado 04/09/17 07:54 04/09/17 08:27 04/09/17 08:31 Subjective: headaches better, no N/V. No weakness. Objective: Vital Signs Temp Pulse Resp BP Pulse Ox 36.9 C 60 19 142/83 H 95 04/09/17 07:31 04/09/17 07:31 04/09/17 07:31 04/09/17 07:31 04/09/17 07:31 Laboratory Results 04/09/17 05:30 04/09/17 05:30 04/08/17 04/09/17 04/10/17 05:59 05:59 05:59 Intake Total 2562 3814 Output Total 3120 2952 21 Balance -558 862 -21 AAOX4, +FC PERRL, EOMI, no facial droop ROZ x 4 + light touch C/D/I ICD10 Worksheet Patient Problems: Problems Problem Status Onset Subarachnoid hemorrhage Acute
[2017-04-09] MEDS: CETIRIZINE 10 MG TAB PO SCH (08:44)
[2017-04-09] MEDS: SENNOSIDES/DOCUSATE SODIUM TAB PO SCH ×2 (08:44→20:14)
[2017-04-09] MEDS: NEBIVOLOL HCL 5 MG TAB PO SCH (08:45)
[2017-04-09] MEDS: FAMOTIDINE 20 MG TAB PO SCH ×2 (08:45→20:15)
[2017-04-09] MEDS: METHOCARBAMOL 750 MG TAB PO SCH ×3 (08:45→21:53)
[2017-04-09] MEDS: MONTELUKAST SODIUM 10 MG TAB PO SCH (08:45)
[2017-04-09] MEDS: FENOFIBRATE 145 MG TAB PO SCH (08:45)
[2017-04-09] MEDS: ALFUZOSIN HCL 10 MG PO SCH (09:13)
[2017-04-09] MEDS: hydrALAZINE 20 MG/ML VIAL IVP PRN (10:08)
[2017-04-09] MEDS: NS W/ 20 KCl/L 1,000 ML IV SCH (10:15)
[2017-04-09] MEDS: niCARdipine/NACL 200 ML IV SCH ×2 (11:08→16:28)
[2017-04-09] MEDS: POLYETHYLENE GLYCOL 3350 17 GM PKT PO PRN (11:33)
--- NOTE | 2017-04-09 12:07 | HOSPPROG ---
Hospitalist Progress Note Assessment/Plan: SAH with subsequent obstructive hydrocephalus s/p ventric drain - Cont ICP monitoring, BP goal <140, neurosurgery managing. Hypertension - SBP goal as above. Cont Bystolic, PRN Nicardipine. Hyperlipidemia - cont statin, fibrate. BPH - cont alpha faizan Full code Subjective: Pt doing much better today. Awake, alert, walking in halls. Has a headache, worse when upright. No focal weakness. No vision changes. No CP or SOB. Objective: Vital Signs Temp Pulse Resp BP Pulse Ox 36.9 C 54 L 15 141/80 H 93 04/09/17 07:31 04/09/17 11:00 04/09/17 11:00 04/09/17 11:00 04/09/17 11:00 Laboratory Results 04/09/17 05:30 04/09/17 05:30 04/08/17 04/09/17 04/10/17 05:59 05:59 05:59 Intake Total 2562 3814 Output Total 3120 2952 576 Balance -558 862 -576 - Physical Exam Constitutional: no apparent distress Eyes: PERRL Ears, Nose, Mouth, Throat: moist mucous membranes Cardiovascular: regular rate and rhythym Respiratory: no respiratory distress Gastrointestinal: normoactive bowel sounds, soft, non-tender abdomen Skin: warm Musculoskeletal: full muscle strength Neurologic: AAOx3 Psychiatric: interacting appropriately ICD10 Worksheet Patient Problems: Problems Problem Status Onset Subarachnoid hemorrhage Acute
--- NOTE | 2017-04-09 16:55 | PDINTPN ---
Database Administrator Progress Note Assessment/Plan: Assessment: Status post subarachnoid hemorrhage. The etiology remains unclear. Angiogram did not show an aneurysm. Exact bleeding site not identified. Neurologic changes yesterday consistent with possible spasm vs Hydrocephalus. Status post drain placement: ICP 5-8 range. Headache: Improved with alleviation of increased pressures and drainage of fluid associated with hydrocephalus. Hypertension. On nimodipine for spasm. Anti hypertensives to be used judiciously, requiring occasional p.r.n. hydralazine. Obviously a difficult situation as high blood pressures may cause recurrent bleeding, too low may be associated with vaso spasm. History rhinitis, allergies. History of atrial fibrillation, status post ablation 5 years ago. Plan: Continue care in the intensive care unit. Close monitoring of blood pressure with antihypertensives for BP is greater than 140. Nimodipine to continue. Neurosurgery following closely. Discussed with the patient's family, neuro surgery, nursing, the ICU multi disciplinary team. Subjective: Doing better today. Decreased headache. Drain in place. Objective: Vital Signs Temp Pulse Resp BP Pulse Ox 37.0 C 53 L 16 124/65 H 95 04/09/17 16:00 04/09/17 16:00 04/09/17 16:00 04/09/17 16:00 04/09/17 16:00 Laboratory Results 04/09/17 05:30 04/09/17 05:30 04/08/17 04/09/17 04/10/17 05:59 05:59 05:59 Intake Total 2562 3814 820 Output Total 3120 2952 1257 Balance -558 862 -437 Physical Exam - Physical Exam General Appearance: alert, no apparent distress EENT: other (Drain in place. Nasal cannula in place at 2 L when sleeping) Neck: normal inspection Respiratory: lungs clear Cardiac/Chest: bradycardia Abdomen: normal bowel sounds, non-tender, soft Skin: normal color, warm/dry Extremities: No pedal edema Neuro/Psych: no motor/sensory deficits, No cognition abnormalities (Some perseveration. Oriented.) ICD10 Worksheet Patient Problems: Problems Problem Status Onset Subarachnoid hemorrhage Acute
[2017-04-09] MEDS: ROSUVASTATIN CALCIUM 20 MG TAB PO SCH (20:15)
[2017-04-09] MEDS: Finasteride [Propecia] 1 MG PO SCH (20:16)
[2017-04-09] MEDS: Mirabegron [Myrbetriq] 50 MG PO SCH (20:16)
[2017-04-09] MEDS: HYDROmorphONE/DILAUDID 1 MG/ML SYR IVP PRN (23:37)
[2017-04-09] MEDS: oxyCODONE IR 5 MG TAB PO PRN (23:37)
[2017-04-10] MEDS: niMODipine 30 MG CAP PO SCH ×6 (01:38→21:03)
[2017-04-10] MEDS: traMADol 50 MG TAB PO PRN ×3 (01:38→16:45)
[2017-04-10] MEDS: niCARdipine/NACL 200 ML IV SCH ×3 (01:40→16:47)
[2017-04-10] MEDS: NS W/ 20 KCl/L 1,000 ML IV SCH (01:44)
[2017-04-10] MEDS: HYDROmorphONE/DILAUDID 1 MG/ML SYR IVP PRN (02:54)
[2017-04-10 04:22] LABS: % IMMATURE GRANULYOCYTES 0.5 % (0.0-1.1); ABSOLUTE IMMATURE GRANULOCYTES 0.04 10^3/uL (0.00-0.10); ADD DIFF? NO; ADD MORPH? NO; ADD SCAN? NO; ATYPICAL LYMPHOCYTE FLAG 0 (0-99); FRAGMENT RBC FLAG 0 (0-99); HEMATOCRIT 37.4 % (40.0-51.0); HEMOGLOBIN 12.8 g/dL (13.7-17.5); LEFT SHIFT FLG 0 (0-99); LIPEMIA HEMOLYSIS FLAG 90 (0-99); MEAN CELL HEMOGLOBIN 30.6 pg (27.9-34.1); MEAN CELL HEMOGLOBIN CONCENTR. 34.2 g/dL (32.4-36.7); MEAN CELL VOLUME 89.5 fL (81.5-99.8); MEAN PLATELET VOLUME 10.6 fL (8.7-11.7); PLATELET CLUMPS FLAG 0 (0-99); PLATELET COUNT 156 10^3/uL (150-400); RED BLOOD CELL COUNT 4.18 10^6/uL (4.40-6.38); RED CELL DISTRIBUTION WIDTH 13.1 % (11.5-15.2)
[2017-04-10] MEDS: oxyCODONE IR 5 MG TAB PO PRN ×2 (06:34→10:05)
[2017-04-10] MEDS: CETIRIZINE 10 MG TAB PO SCH (08:36)
[2017-04-10] MEDS: NEBIVOLOL HCL 5 MG TAB PO SCH (08:36)
[2017-04-10] MEDS: FAMOTIDINE 20 MG TAB PO SCH ×2 (08:36→21:03)
[2017-04-10] MEDS: SENNOSIDES/DOCUSATE SODIUM TAB PO SCH ×2 (08:37→21:03)
[2017-04-10] MEDS: FENOFIBRATE 145 MG TAB PO SCH (08:37)
[2017-04-10] MEDS: METHOCARBAMOL 750 MG TAB PO SCH ×3 (08:37→21:03)
[2017-04-10] MEDS: MONTELUKAST SODIUM 10 MG TAB PO SCH (08:37)
[2017-04-10] MEDS ORDERED: DEXAMETHASONE 10 MG/ML VIAL IVP ONE (09:02)
--- NOTE | 2017-04-10 09:11 | NEUSURGPN ---
Assessment/Plan: Assessment: 67 yo M with SAH sp EVD placement Plan: neuro: stable, headache increased yesterday afternoon, repeat head CT stable -Opened EVD to 5, draining ~10cc/hr, has not improved "throbbing" headache -Will give him one dose decadron IV, then continue PO -Plan to leave EVD until Friday, we will then check CSF profile and try EVD challenge -continue Q1 hour neuro checks -please keep SBP < 140 mmhg -PT/OT/ST -continue nimodipine for vasospam prophylaxis -scd/domenico for dvt prophylaxis -please call with neuro changes discussed with Dr Richard Subjective: Patient has a throbbing headache Objective: AAOX4, +FC PERRL, EOMI, no facial droop ROZ x 4 + light touch C/D/I Neuro Check Frequency: per routine Urinary Catheter in Place: No - Physician Discussed Patient with : Jose Manuel Neurosurgery Physical Exam - Vitals, I&O, Labs I and O 04/09/17 04/10/17 04/11/17 05:59 05:59 05:59 Intake Total 3814 4947 Output Total 2952 4465 43 Balance 862 482 -43 Intake: Oral (ml) 1050 1970 IV Intake (ml) 1000 IV Infused (ml) 1764 2977 NS W/ 20 KCl/L 1,000 ml @ 1764 2513 100 mls/hr IV CONT NIA Rx#:[id number] niCARdipine/NACL 200 ml @ 206 Titrate IV CONT NIA Rx#: [id number] niCARdipine/NACL 200 ml @ 258 Titrate IV CONT NIA Rx#: [id number] Output: Urine (ml) 2810 4200 Urinal 2810 4200 CSF Drainage Amount 142 265 43 Ventriculostomy 142 265 43 Other: Intake Quantity Yes Sufficient Number of Voids Urinal 3 Number of Stools Urinal 0 Vital Signs Temp Pulse Resp BP Pulse Ox 37.3 C 64 17 117/65 92 04/10/17 08:00 04/10/17 09:00 04/10/17 09:00 04/10/17 09:00 04/10/17 09:00 Laboratory Results 04/10/17 04:05 04/09/17 05:30 ICD10 Worksheet Patient Problems: Problems Problem Status Onset Subarachnoid hemorrhage Acute
--- NOTE | 2017-04-10 12:14 | HOSPPROG ---
Hospitalist Progress Note Assessment/Plan: SAH with subsequent obstructive hydrocephalus s/p ventric drain - Cont ICP monitoring, BP goal <140, neurosurgery managing. Hypertension - SBP goal as above. Cont Bystolic, Nimodipine for spasm, PRN Nicardipine. Hyperlipidemia - cont statin, fibrate. BPH - cont alpha faizan Constipation - bowel protocol Full code DVT PPLX - pharm c/i due to above, SCD's, ambulation Subjective: Pt up in chair, mentating well. C/O headache, comes and goes. Ambulating. Taking po. No CP or SOB. Objective: Vital Signs Temp Pulse Resp BP Pulse Ox 37.3 C 60 18 131/78 H 92 04/10/17 08:00 04/10/17 11:00 04/10/17 11:00 04/10/17 11:00 04/10/17 11:00 Laboratory Results 04/10/17 04:05 04/09/17 05:30 04/09/17 04/10/17 04/11/17 05:59 05:59 05:59 Intake Total 3814 4947 Output Total 2952 4465 70 Balance 862 482 -70 - Physical Exam Constitutional: no apparent distress Eyes: PERRL Ears, Nose, Mouth, Throat: moist mucous membranes Cardiovascular: regular rate and rhythym Respiratory: no respiratory distress, clear to auscultation Gastrointestinal: normoactive bowel sounds, soft, non-tender abdomen Skin: warm Musculoskeletal: other (SCD's on LE's) Neurologic: AAOx3 Psychiatric: interacting appropriately ICD10 Worksheet Patient Problems: Problems Problem Status Onset Subarachnoid hemorrhage Acute
[2017-04-10] MEDS: DEXAMETHASONE 4 MG TAB PO SCH ×2 (12:41→18:19)
[2017-04-10] MEDS: ACET/CAFFEINE/BUTA FIORICET 1 EACH TAB PO PRN ×2 (12:41→21:03)
--- NOTE | 2017-04-10 17:30 | PDINTPN ---
Finish Photographer Progress Note Assessment/Plan: Assessment: Status post subarachnoid hemorrhage. The etiology remains unclear. Angiogram did not show an aneurysm. Exact bleeding site not identified. Neurologic changes yesterday consistent with possible spasm vs Hydrocephalus. Status post drain placement: ICP 5-8 range. Headache: Improved with alleviation of increased pressures and drainage of fluid associated with hydrocephalus. Hypertension. On nimodipine for spasm. On low-dose nicardipine today, titrated to keep systolic below 140. History rhinitis, allergies. History of atrial fibrillation, status post ablation 5 years ago. Plan: Continue care in the intensive care unit. Close monitoring of blood pressure. Continue nicardipine intravenous drip as needed. Nimodipine to continue. Neurosurgery following. 20 minutes of critical care time spent directly with the patient. Discussed with the patient's family, neuro surgery, nursing, the ICU multi disciplinary team. Subjective: Doing well today. Still has a headache. Worse after waking up when he is recumbent. Otherwise has no significant complaints. No BM yet. Objective: Vital Signs Temp Pulse Resp BP Pulse Ox 37.0 C 64 18 141/77 H 92 04/10/17 16:00 04/10/17 17:00 04/10/17 17:00 04/10/17 17:00 04/10/17 17:00 Laboratory Results 04/10/17 04:05 04/09/17 05:30 04/09/17 04/10/17 04/11/17 05:59 05:59 05:59 Intake Total 3814 4947 2857 Output Total 2952 4465 2023 Balance [address] scan of the head: Overall improved Physical Exam - Physical Exam General Appearance: alert, no apparent distress, other (Up in chair) EENT: PERRL/EOMI, other (Drain in place) Neck: normal inspection Respiratory: lungs clear Cardiac/Chest: regular rate, rhythm, bradycardia Abdomen: normal bowel sounds, non-tender, soft Skin: normal color, warm/dry Extremities: No pedal edema Neuro/Psych: no motor/sensory deficits, cognition abnormalities (Mild, oriented x3 but confused at times, some perseveration) ICD10 Worksheet Patient Problems: Problems Problem Status Onset Subarachnoid hemorrhage Acute
[2017-04-10] MEDS: POLYETHYLENE GLYCOL 3350 17 GM PKT PO PRN (21:03)
[2017-04-10] MEDS: ROSUVASTATIN CALCIUM 20 MG TAB PO SCH (21:03)
[2017-04-11] MEDS: DEXAMETHASONE 4 MG TAB PO SCH ×4 (00:40→18:03)
[2017-04-11] MEDS: niCARdipine/NACL 200 ML IV SCH ×4 (00:41→16:28)
[2017-04-11] MEDS: NS W/ 20 KCl/L 1,000 ML IV SCH ×3 (00:41→16:17)
[2017-04-11] MEDS: niMODipine 30 MG CAP PO SCH ×6 (00:58→21:17)
[2017-04-11] MEDS: traMADol 50 MG TAB PO PRN (00:58)
[2017-04-11] MEDS: ACET/CAFFEINE/BUTA FIORICET 1 EACH TAB PO PRN ×3 (03:25→16:28)
[2017-04-11] MEDS: HYDROmorphONE/DILAUDID 1 MG/ML SYR IVP PRN (03:25)
--- NOTE | 2017-04-11 07:33 | NEUSURGPN ---
Assessment/Plan: Assessment: 67 yo M with SAH sp EVD placement Plan: -neuro stable -repeat head CT stable -Opened EVD to 5, draining ~10cc/hr -Continue decadron -Plan to leave EVD until Friday, we will then check CSF profile and try EVD challenge -continue Q1 hour neuro checks -please keep SBP < 140 mmhg -PT/OT/ST -continue nimodipine for vasospam prophylaxis -constipation, bowel protocol -scd/domenico for dvt prophylaxis -please call with neuro changes discussed with Dr Richard Subjective: Headache only occurs when making sudden head movements. Objective: PERRL. EOMI Facial expression symmetrical Speech fluent Muscle strength full at 5/5 Sensation intact - Physician Discussed Patient with : Jose Manuel Neurosurgery Physical Exam - Vitals, I&O, Labs I and O 04/10/17 04/11/17 04/12/17 05:59 05:59 05:59 Intake Total 4947 5379 Output Total 4465 4365 508 Balance 482 1014 -508 Intake: Oral (ml) 1970 2500 IV Infused (ml) 2977 2879 NS W/ 20 KCl/L 1,000 ml @ 2513 2292 100 mls/hr IV CONT NIA Rx#:[id number] niCARdipine/NACL 200 ml @ 206 Titrate IV CONT NIA Rx#: [id number] niCARdipine/NACL 200 ml @ 258 587 Titrate IV CONT NIA Rx#: [id number] Output: Urine (ml) 4200 4050 500 Urinal 4200 4050 500 CSF Drainage Amount 265 315 8 Ventriculostomy 265 315 8 Other: Intake Quantity Yes Sufficient Number of Voids Urinal 3 Vital Signs Temp Pulse Resp BP Pulse Ox 36.8 C 56 L 18 135/69 H 95 04/10/17 20:00 04/11/17 06:00 04/11/17 06:00 04/11/17 06:00 04/11/17 06:00 Laboratory Results 04/10/17 04:05 04/09/17 05:30 ICD10 Worksheet Patient Problems: Problems Problem Status Onset Subarachnoid hemorrhage Acute
--- NOTE | 2017-04-11 09:25 | HOSPPROG ---
Hospitalist Progress Note Assessment/Plan: #SAH with hydrocephalus: goal SBP <140. PRN anti-hypertensives -PT/OT #HLD: statin #BPH: home med #Constipation: had bowel movement #Diet: regular #DVT ppx; SCDs Please call if questions, will follow along Subjective: FREEMAN if moves head too quickly Objective: Vital Signs Temp Pulse Resp BP Pulse Ox 36.9 C 56 L 18 149/75 H 94 04/11/17 07:00 04/11/17 08:00 04/11/17 08:00 04/11/17 08:00 04/11/17 08:00 Laboratory Results 04/10/17 04:05 04/09/17 05:30 04/10/17 04/11/17 04/12/17 05:59 05:59 05:59 Intake Total 4947 5379 Output Total 4481 4368 1233 Balance 2 1016 -1235 - Physical Exam Constitutional: no apparent distress Eyes: PERRL Ears, Nose, Mouth, Throat: moist mucous membranes, hearing normal, other ( Vetric in place) Cardiovascular: regular rate and rhythym, no murmur, rub, or gallop Respiratory: no respiratory distress, no rales or rhonchi Gastrointestinal: normoactive bowel sounds Genitourinary: no bladder fullness Skin: warm Musculoskeletal: full muscle strength Neurologic: AAOx3 Psychiatric: interacting appropriately ICD10 Worksheet Patient Problems: Problems Problem Status Onset Subarachnoid hemorrhage Acute
[2017-04-11] MEDS: BISACODYL 10 MG SUPP PR PRN (09:37)
[2017-04-11] MEDS: FAMOTIDINE 20 MG TAB PO SCH ×2 (09:38→20:01)
[2017-04-11] MEDS: SENNOSIDES/DOCUSATE SODIUM TAB PO SCH ×2 (09:38→20:01)
[2017-04-11] MEDS: METHOCARBAMOL 750 MG TAB PO SCH ×3 (09:38→21:17)
[2017-04-11] MEDS: FENOFIBRATE 145 MG TAB PO SCH (09:38)
[2017-04-11] MEDS: CETIRIZINE 10 MG TAB PO SCH (09:38)
[2017-04-11] MEDS: MONTELUKAST SODIUM 10 MG TAB PO SCH (09:38)
[2017-04-11] MEDS: NEBIVOLOL HCL 5 MG TAB PO SCH (09:38)
[2017-04-11] MEDS: hydrALAZINE 20 MG/ML VIAL IVP PRN (10:27)
--- NOTE | 2017-04-11 17:53 | PDINTPN ---
Highway Patrol Pilot Progress Note Assessment/Plan: Assessment: Status post acute headache with subarachnoid hemorrhage 04/06. The etiology remains unclear. Angiogram did not show an aneurysm. Exact bleeding site not identified. Neurologic changes 04/09 consistent with possible spasm vs Hydrocephalus. Status post drain placement. doing well Headache: Improved with alleviation of increased pressures and drainage of fluid associated with hydrocephalus. Hypertension. On nimodipine for spasm. On nicardipine drip, titrated to keep systolic below 140. History rhinitis, allergies. History of atrial fibrillation, status post ablation 5 years ago. Plan: Continue care in the intensive care unit. Close monitoring of blood pressure. Continue nicardipine intravenous drip as needed. Nimodipine to continue. Neurosurgery following. 20 minutes of critical care time spent directly with the patient. Discussed with the patient's family, neuro surgery, nursing, the ICU multi disciplinary team. Subjective: Doing well. No complaints. Headache much less. Decreased perseveration. Objective: Vital Signs Temp Pulse Resp BP Pulse Ox 36.8 C 63 19 141/76 H 95 04/11/17 16:00 04/11/17 17:00 04/11/17 17:00 04/11/17 17:00 04/11/17 17:00 Laboratory Results 04/10/17 04:05 04/09/17 05:30 04/10/17 04/11/17 04/12/17 05:59 05:59 05:59 Intake Total 4947 5379 Output Total 4465 4365 1621 Balance 482 1014 -1621 Physical Exam - Physical Exam General Appearance: alert, no apparent distress EENT: other ( Drain in place) Neck: normal inspection Respiratory: lungs clear Cardiac/Chest: regular rate, rhythm Abdomen: normal bowel sounds, non-tender, soft, other ( had a BM) Skin: normal color, warm/dry Extremities: No pedal edema Neuro/Psych: no motor/sensory deficits, No cognition abnormalities ICD10 Worksheet Patient Problems: Problems Problem Status Onset Subarachnoid hemorrhage Acute
[2017-04-11] MEDS: ROSUVASTATIN CALCIUM 20 MG TAB PO SCH (20:01)
[2017-04-11] MEDS: ACETAMINOPHEN 325 MG TAB PO PRN (20:01)
[2017-04-12] MEDS: DEXAMETHASONE 4 MG TAB PO SCH ×5 (00:05→22:53)
[2017-04-12] MEDS: niMODipine 30 MG CAP PO SCH ×6 (01:18→21:02)
[2017-04-12] MEDS ORDERED: BACITRACIN OINTMENT 1 PACKET TP ONE (02:06)
[2017-04-12] MEDS: ACET/CAFFEINE/BUTA FIORICET 1 EACH TAB PO PRN ×2 (04:41→10:01)
[2017-04-12] MEDS: traMADol 50 MG TAB PO PRN ×3 (04:41→22:52)
[2017-04-12] MEDS: SENNOSIDES/DOCUSATE SODIUM TAB PO SCH ×2 (08:04→21:02)
[2017-04-12] MEDS: oxyCODONE IR 5 MG TAB PO PRN ×2 (08:04→22:52)
[2017-04-12] MEDS: FAMOTIDINE 20 MG TAB PO SCH ×2 (08:05→21:02)
[2017-04-12] MEDS: NEBIVOLOL HCL 5 MG TAB PO SCH (08:05)
[2017-04-12] MEDS: FENOFIBRATE 145 MG TAB PO SCH (08:05)
[2017-04-12] MEDS: MONTELUKAST SODIUM 10 MG TAB PO SCH (08:05)
[2017-04-12] MEDS: CETIRIZINE 10 MG TAB PO SCH (08:05)
[2017-04-12] MEDS: METHOCARBAMOL 750 MG TAB PO SCH ×3 (08:05→21:02)
--- NOTE | 2017-04-12 11:20 | NEUSURGPN ---
Assessment/Plan: Assessment: 67 yo M with SAH sp EVD placement Plan: -neuro stable -Will raise EVD open at 10 -Continue decadron -Plan to leave EVD until Friday, we will then check CSF profile and try EVD challenge -continue Q1 hour neuro checks -please keep SBP < 140 mmhg -PT/OT/ST -continue nimodipine for vasospam prophylaxis -constipation, bowel protocol -scd/domenico for dvt prophylaxis -please call with neuro change Dr Stanley saw patient as well Subjective: Patient feeling good, sitting in chair-states only has headache first thing in the am Objective: PERRL. EOMI Facial expression symmetrical Speech fluent Muscle strength full at 5/5 Sensation intact Neuro Check Frequency: per routine Urinary Catheter in Place: No - Physician Discussed Patient with : Jose Manuel Patient Seen by : Lizeth Neurosurgery Physical Exam - Vitals, I&O, Labs I and O 04/11/17 04/12/17 04/13/17 05:59 05:59 05:59 Intake Total 5379 2610 Output Total 4365 3849 339 Balance 1014 -1239 -339 Intake: Oral (ml) 2500 1350 IV Infused (ml) 2879 1260 NS W/ 20 KCl/L 1,000 ml @ 2292 811 100 mls/hr IV CONT NIA Rx#:[id number] niCARdipine/NACL 200 ml @ 587 449 Titrate IV CONT NIA Rx#: [id number] Output: Urine (ml) 4050 3625 300 Urinal 4050 3625 300 CSF Drainage Amount 315 224 39 Ventriculostomy 315 224 39 Other: Number of Stools Urinal 1 Vital Signs Temp Pulse Resp BP Pulse Ox 36.7 C 56 L 13 132/73 H 97 04/12/17 09:00 04/12/17 10:00 04/12/17 10:00 04/12/17 10:00 04/12/17 10:00 Laboratory Results 04/10/17 04:05 04/09/17 05:30 ICD10 Worksheet Patient Problems: Problems Problem Status Onset Subarachnoid hemorrhage Acute
--- NOTE | 2017-04-12 14:07 | PDINTPN ---
Physicians And Surgeons Progress Note Assessment/Plan: Assessment: Status post acute headache with subarachnoid hemorrhage 04/06. The etiology remains unclear. Angiogram did not show an aneurysm. Exact bleeding site not identified. Neurologic changes 04/09 consistent with possible spasm vs Hydrocephalus. Status post drain placement. doing well Headache: Improved with alleviation of increased pressures and drainage of fluid associated with hydrocephalus. Hypertension. On nimodipine for spasm. Off nicardipine drip today for systolic below 140. History rhinitis, allergies. History of atrial fibrillation, status post ablation 5 years ago. Plan: Continue care in the intensive care unit. Close monitoring of blood pressure. Continue nicardipine intravenous drip as needed. Nimodipine to continue. Neurosurgery following. 20 minutes of critical care time spent directly with the patient. Discussed with the patient's , nursing, the ICU multi disciplinary team. Subjective: doing well, headache unchanged. Mental status improved. Objective: Vital Signs Temp Pulse Resp BP Pulse Ox 36.6 C 53 L 15 146/69 H 97 04/12/17 13:00 04/12/17 13:00 04/12/17 13:00 04/12/17 13:00 04/12/17 13:00 Laboratory Results 04/10/17 04:05 04/09/17 05:30 04/11/17 04/12/17 04/13/17 05:59 05:59 05:59 Intake Total 5379 2610 Output Total 4365 3849 363 Balance 1014 -1239 -363 Physical Exam - Physical Exam General Appearance: alert, no apparent distress, other ( in chair) EENT: other ( drain in place with serosanguineous output. ICP 5) Neck: normal inspection Respiratory: lungs clear, normal breath sounds Cardiac/Chest: bradycardia ( sinus) Abdomen: normal bowel sounds, non-tender, soft Extremities: No pedal edema Neuro/Psych: no motor/sensory deficits, No cognition abnormalities ICD10 Worksheet Patient Problems: Problems Problem Status Onset Subarachnoid hemorrhage Acute
--- NOTE | 2017-04-12 16:57 | HOSPPROG ---
Hospitalist Progress Note Assessment/Plan: #SAH with hydrocephalus: goal SBP <140. PRN anti-hypertensives -cont EVD through Friday -PT/OT #HLD: statin #BPH: home med #Constipation: had bowel movement #FREEMAN: improved # Afib: prior ablation #Diet: regular #DVT ppx; SCDs Please call if questions, will follow along Subjective: min FREEMAN this mornning Objective: Vital Signs Temp Pulse Resp BP Pulse Ox 36.6 C 53 L 15 135/64 H 92 04/12/17 13:00 04/12/17 16:00 04/12/17 16:00 04/12/17 16:00 04/12/17 16:00 Laboratory Results 04/10/17 04:05 04/09/17 05:30 04/11/17 04/12/17 04/13/17 05:59 05:59 05:59 Intake Total 5379 2610 Output Total 4365 5549 430 Balance 1014 -1239 -430 - Physical Exam Constitutional: no apparent distress Eyes: PERRL Ears, Nose, Mouth, Throat: moist mucous membranes, hearing normal, other (EVD in place, reddish drainage) Cardiovascular: regular rate and rhythym, no murmur, rub, or gallop Respiratory: no respiratory distress, no rales or rhonchi Gastrointestinal: normoactive bowel sounds, soft, non-tender abdomen Genitourinary: no bladder fullness Skin: warm Musculoskeletal: full muscle strength Neurologic: AAOx3, CN II-XII Intact Psychiatric: interacting appropriately ICD10 Worksheet Patient Problems: Problems Problem Status Onset Subarachnoid hemorrhage Acute
[2017-04-12] MEDS: hydrALAZINE 20 MG/ML VIAL IVP PRN (17:09)
[2017-04-12] MEDS: ACETAMINOPHEN 325 MG TAB PO PRN (19:42)
[2017-04-12] MEDS: ROSUVASTATIN CALCIUM 20 MG TAB PO SCH (21:02)
[2017-04-12] MEDS: MELATONIN 3 MG TAB PO PRN (21:02)
[2017-04-13] MEDS: niMODipine 30 MG CAP PO SCH ×6 (01:49→21:20)
[2017-04-13] MEDS: ACETAMINOPHEN 325 MG TAB PO PRN ×2 (01:49→19:12)
[2017-04-13] MEDS: ACET/CAFFEINE/BUTA FIORICET 1 EACH TAB PO PRN ×3 (05:18→16:56)
[2017-04-13] MEDS: DEXAMETHASONE 4 MG TAB PO SCH ×3 (05:18→16:55)
[2017-04-13] MEDS: traMADol 50 MG TAB PO PRN ×3 (05:18→16:55)
--- NOTE | 2017-04-13 07:19 | NEUSURGPN ---
Assessment/Plan: Assessment: 67 yo M with SAH sp EVD placement Plan: -neuro stable -Will raise EVD open at 15 from 10 -Continue decadron as ordered -Plan to leave EVD until Friday/, we will then check CSF profile and continue with EVD challenge -continue Q1 hour neuro checks-continue at this time -please keep SBP < 140 mmhg -PT/OT/ST-CPM -continue nimodipine for vasospam prophylaxis -constipation, bowel protocol -scd/domenico for dvt prophylaxis -please call with neuro change -Dr Stanley saw patient as well -call NS with any changes or issues Subjective: Awake and alert. NAD. Eating/drinking and voiding. No f/c/n/v/d. No darby/neck/ chest/abd or gu complaints. Objective: PERRL. EOMI Facial expression symmetrical Speech fluent Muscle strength full at 5/5 Sensation intact Neuro Check Frequency: as ordered Urinary Catheter in Place: No - Physician Discussed Patient with : Lizeth Patient Seen by : Lizeth Neurosurgery Physical Exam - Vitals, I&O, Labs I and O 04/12/17 04/13/17 04/14/17 05:59 05:59 05:59 Intake Total 2610 2300 Output Total 3849 4134 365 Balance -1239 -1834 -365 Intake: Oral (ml) 1350 2300 IV Infused (ml) 1260 NS W/ 20 KCl/L 1,000 ml @ 811 100 mls/hr IV CONT NIA Rx#:[id number] niCARdipine/NACL 200 ml @ 449 Titrate IV CONT NIA Rx#: [id number] Output: Urine (ml) 3625 3925 350 Urinal 3625 3925 350 CSF Drainage Amount 224 209 15 Ventriculostomy 224 209 15 Other: Number of Stools Urinal 1 Vital Signs Temp Pulse Resp BP Pulse Ox 36.8 C 50 L 13 132/77 H 92 04/13/17 04:00 04/13/17 06:00 04/13/17 06:00 04/13/17 06:00 04/13/17 06:00 Laboratory Results 04/10/17 04:05 04/09/17 05:30 ICD10 Worksheet Patient Problems: Problems Problem Status Onset Subarachnoid hemorrhage Acute
[2017-04-13] MEDS: NEBIVOLOL HCL 5 MG TAB PO SCH (08:11)
[2017-04-13] MEDS: METHOCARBAMOL 750 MG TAB PO SCH ×3 (08:12→21:20)
[2017-04-13] MEDS: FENOFIBRATE 145 MG TAB PO SCH (08:12)
[2017-04-13] MEDS: FAMOTIDINE 20 MG TAB PO SCH ×2 (08:12→19:13)
[2017-04-13] MEDS: oxyCODONE IR 5 MG TAB PO PRN ×2 (08:12→21:20)
[2017-04-13] MEDS: MONTELUKAST SODIUM 10 MG TAB PO SCH (08:12)
[2017-04-13] MEDS: CETIRIZINE 10 MG TAB PO SCH (08:12)
[2017-04-13] MEDS: SENNOSIDES/DOCUSATE SODIUM TAB PO SCH ×2 (08:14→19:12)
--- NOTE | 2017-04-13 08:23 | HOSPPROG ---
Hospitalist Progress Note Assessment/Plan: #SAH with hydrocephalus: goal SBP <140. PRN anti-hypertensives -EVD to 15 today. Decadron. Trial clamping tomorrow -PT/OT #HLD: statin #BPH: home med #Constipation: had bowel movement #FREEMAN: improved # Afib: prior ablation #Diet: regular #DVT ppx; SCDs Please call if questions, will follow along Subjective: FREEMAN when out of bed for walk, tired now Objective: Vital Signs Temp Pulse Resp BP Pulse Ox 36.8 C 51 L 16 137/86 H 94 04/13/17 04:00 04/13/17 08:00 04/13/17 08:00 04/13/17 08:00 04/13/17 08:00 Laboratory Results 04/10/17 04:05 04/09/17 05:30 04/12/17 04/13/17 04/14/17 05:59 05:59 05:59 Intake Total 2610 2300 Output Total 0966 7936 375 [facility]1239 -1834 -375 - Physical Exam Constitutional: no apparent distress Eyes: PERRL Ears, Nose, Mouth, Throat: moist mucous membranes Cardiovascular: regular rate and rhythym Respiratory: no respiratory distress Gastrointestinal: normoactive bowel sounds, soft, non-tender abdomen Genitourinary: no bladder fullness Skin: warm Musculoskeletal: full muscle strength Neurologic: AAOx3, other (EVD in place) Psychiatric: interacting appropriately ICD10 Worksheet Patient Problems: Problems Problem Status Onset Subarachnoid hemorrhage Acute
[2017-04-13] MEDS: hydrALAZINE 20 MG/ML VIAL IVP PRN (10:14)
--- NOTE | 2017-04-13 14:30 | PDINTPN ---
Chair Springer Progress Note Assessment/Plan: Assessment: Status post acute headache with subarachnoid hemorrhage 04/06. The etiology remains unclear. Angiogram did not show an aneurysm. Exact bleeding site not identified. Neurologic changes 04/09 consistent with possible spasm vs Hydrocephalus. Status post drain placement. Doing well Headache: Improved with alleviation of increased pressures and drainage of fluid associated with hydrocephalus. Seems to be resolving at this point Hypertension. On nimodipine for spasm. Off nicardipine drip today for systolic below 140. History rhinitis, allergies. History of atrial fibrillation, status post ablation 5 years ago. Plan: Continue care in the intensive care unit. Close monitoring of blood pressure. Continue nicardipine intravenous drip if needed for systolic blood pressure greater than 140 that cannot be controlled with other medications. Nimodipine to continue. Plans per neuro surgery: Possibly clamp ventricular tomorrow and see how he does. 15 minutes of critical care time spent directly with the patient. Discussed with the patient's , nursing, the ICU multi disciplinary team. Subjective: Doing well, less headache, almost absent today. Mental status significantly improved. Objective: Vital Signs Temp Pulse Resp BP Pulse Ox 36.8 C 45 L 14 122/76 H 96 04/13/17 04:00 04/13/17 14:00 04/13/17 14:00 04/13/17 14:00 04/13/17 14:00 Laboratory Results 04/10/17 04:05 04/09/17 05:30 04/12/17 04/13/17 04/14/17 05:59 05:59 05:59 Intake Total 2610 2300 Output Total 9542 4139 387 [facility] -1239 -1834 -387 Physical Exam - Physical Exam General Appearance: WD/WN EENT: other (Drain in place) Respiratory: lungs clear Cardiac/Chest: regular rate, rhythm Abdomen: normal bowel sounds, non-tender, soft Skin: normal color, warm/dry Extremities: No pedal edema Neuro/Psych: no motor/sensory deficits, No cognition abnormalities ICD10 Worksheet Patient Problems: Problems Problem Status Onset Subarachnoid hemorrhage Acute
[2017-04-13] MEDS: ROSUVASTATIN CALCIUM 20 MG TAB PO SCH (19:13)
[2017-04-13] MEDS: MELATONIN 3 MG TAB PO PRN (21:20)
[2017-04-14] MEDS: niMODipine 30 MG CAP PO SCH ×6 (01:11→21:06)
[2017-04-14] MEDS: DEXAMETHASONE 4 MG TAB PO SCH ×5 (01:12→23:46)
[2017-04-14] MEDS: traMADol 50 MG TAB PO PRN ×4 (01:12→21:13)
[2017-04-14] MEDS: ACET/CAFFEINE/BUTA FIORICET 1 EACH TAB PO PRN ×3 (05:26→18:27)
[2017-04-14] MEDS: CETIRIZINE 10 MG TAB PO SCH (08:42)
[2017-04-14] MEDS: MONTELUKAST SODIUM 10 MG TAB PO SCH (08:42)
[2017-04-14] MEDS: FENOFIBRATE 145 MG TAB PO SCH (08:42)
[2017-04-14] MEDS: FAMOTIDINE 20 MG TAB PO SCH ×2 (08:43→21:07)
[2017-04-14] MEDS: SENNOSIDES/DOCUSATE SODIUM TAB PO SCH ×2 (08:43→21:06)
[2017-04-14] MEDS: METHOCARBAMOL 750 MG TAB PO SCH ×3 (08:43→21:06)
[2017-04-14] MEDS: NEBIVOLOL HCL 5 MG TAB PO SCH (08:43)
--- NOTE | 2017-04-14 08:57 | PDINTPN ---
Retail Wireless Associate Progress Note Assessment/Plan: Assessment/Plan: * Status post acute headache with subarachnoid hemorrhage 04/06. The etiology remains unclear. Angiogram did not show an aneurysm. Exact bleeding site not identified. Neurologic changes 04/09 consistent with possible spasm vs Hydrocephalus. Status post drain placement. Doing well * Headache: Improved with alleviation of increased pressures and drainage of fluid associated with hydrocephalus. Seems to be resolving at this point * Hypertension. On nimodipine for spasm. Off nicardipine drip today for systolic below 140. * History rhinitis, allergies. * History of atrial fibrillation, status post ablation 5 years ago. * Constipation-continue bowel protocol Subjective: Sitting up in chair. Pain is tolerable. Complains of constipation. Awake and alert and oriented x3 Objective: Vital Signs Temp Pulse Resp BP Pulse Ox 36.8 C 48 L 13 142/84 H 93 04/14/17 07:00 04/14/17 08:43 04/14/17 08:00 04/14/17 08:43 04/14/17 08:00 Laboratory Results 04/10/17 04:05 04/09/17 05:30 04/13/17 04/14/17 04/15/17 05:59 05:59 05:59 Intake Total 2300 2250 Output Total 4134 4073 21 [facility] -1834 -1823 -21 Physical Exam - Physical Exam General Appearance: alert, no apparent distress EENT: PERRL/EOMI, normal ENT inspection Neck: non-tender, full range of motion, supple Respiratory: chest non-tender, lungs clear, normal breath sounds Cardiac/Chest: normal peripheral pulses, regular rate, rhythm Abdomen: normal bowel sounds, non-tender, soft Male Genitalia: deferred Rectal: deferred Skin: normal color, warm/dry Extremities: normal range of motion, non-tender, normal inspection, normal capillary refill Neuro/Psych: alert, normal mood/affect, oriented x 3 ICD10 Worksheet Patient Problems: Problems Problem Status Onset Subarachnoid hemorrhage Acute
--- NOTE | 2017-04-14 10:42 | SOAPPROG ---
SOAP Progress Note Assessment/Plan: Assessment: 67 yo M with SAH sp EVD placement Plan: neuro: stable, headaches improved with EVD placement :) will head CT today to evaluate hydrocephalus continue Q1 hour neuro checks will resend CSF to evaluate cell count please keep SBP < 140 mmhg PT/OT/ST on nimodipine for vasospam prophylaxis scd/domenico for dvt prophylaxis please call with neuro changes discussed with Dr Richard 04/09/17 07:54 04/09/17 08:27 04/09/17 08:31 04/14/17 10:40 Subjective: headaches improved, no N/V. Objective: Vital Signs Temp Pulse Resp BP Pulse Ox 36.8 C 45 L 12 155/87 H 94 04/14/17 07:00 04/14/17 10:00 04/14/17 10:00 04/14/17 10:00 04/14/17 10:00 Laboratory Results 04/10/17 04:05 04/09/17 05:30 04/13/17 04/14/17 04/15/17 05:59 05:59 05:59 Intake Total 2300 2250 Output Total 5504 4073 26 Balance -1834 -1823 -26 AAOX4, +FC PERRL, EOMI, no facial droop 5/5 + light touch C/D/I at EVD ICD10 Worksheet Patient Problems: Problems Problem Status Onset Subarachnoid hemorrhage Acute
[2017-04-14] MEDS: hydrALAZINE 20 MG/ML VIAL IVP PRN (10:57)
[2017-04-14 11:18] LABS: CSF COLOR PINK (COLORLESS)
[2017-04-14 11:19] LABS: CSF APPEARANCE CLOUDY (CLEAR); WBC, CSF 217 /mm3 (0-5)
--- NOTE | 2017-04-14 11:29 | HOSPPROG ---
Hospitalist Progress Note Assessment/Plan: #SAH with hydrocephalus: goal SBP <140. PRN anti-hypertensives, nimodipine -EVD to 15, still high outpu. Decadron. -PT/OT #Leg cramps: check BMP #HLD: statin #BPH: home med #Constipation: had bowel movement #FREEMAN: improved # Afib: prior ablation #Diet: regular #DVT ppx; SCDs Please call if questions, will follow along Subjective: tired this morning Objective: Vital Signs Temp Pulse Resp BP Pulse Ox 36.8 C 43 L 15 151/47 H 95 04/14/17 07:00 04/14/17 11:00 04/14/17 11:00 04/14/17 11:00 04/14/17 11:00 Laboratory Results 04/10/17 04:05 04/09/17 05:30 04/13/17 04/14/17 04/15/17 05:59 05:59 05:59 Intake Total 2300 2250 Output Total 4137 7232 26 Balance -1834 -1823 -26 - Physical Exam Constitutional: other (tired appearing) Eyes: PERRL Ears, Nose, Mouth, Throat: moist mucous membranes Cardiovascular: regular rate and rhythym Respiratory: no respiratory distress Gastrointestinal: normoactive bowel sounds, soft, non-tender abdomen Genitourinary: no bladder fullness Skin: warm Musculoskeletal: full muscle strength Neurologic: AAOx3, other (EVD in place with pink fluid) Psychiatric: interacting appropriately ICD10 Worksheet Patient Problems: Problems Problem Status Onset Subarachnoid hemorrhage Acute
[2017-04-14] MEDS: niCARdipine/NACL 200 ML IV SCH ×2 (12:07→23:46)
[2017-04-14 13:00] LABS: CHLORIDE 94 mEq/L (97-110)
[2017-04-14 13:25] LABS: ANION GAP 13 mEq/L (8-16); CALCIUM 9.5 mg/dL (8.5-10.4); CARBON DIOXIDE 20 mEq/l (22-31); CREATININE 0.9 mg/dL (0.7-1.3); GLOMERULAR FILTRATION RATE > 60; GLUCOSE 106 mg/dL (70-100); POTASSIUM 4.6 mEq/L (3.5-5.2); SODIUM 127 mEq/L (134-144)
[2017-04-14 16:06] LABS: COLOR YELLOW; LEUKOCYTE ESTERASE,URINE NEGATIVE (NEGATIVE); NITRITE,URINE NEGATIVE (NEGATIVE)
[2017-04-14] MEDS: LACTULOSE 20 GM/30 ML UDCUP PO PRN (16:13)
[2017-04-14] MEDS ORDERED: NS 1,000 ML IV SCH (16:30)
[2017-04-14] MEDS: ROSUVASTATIN CALCIUM 20 MG TAB PO SCH (21:06)
[2017-04-14] MEDS: MELATONIN 3 MG TAB PO PRN (21:07)
[2017-04-14] MEDS: oxyCODONE IR 5 MG TAB PO PRN (23:46)
[2017-04-15] MEDS: niMODipine 30 MG CAP PO SCH ×6 (03:00→21:11)
[2017-04-15] MEDS: ACET/CAFFEINE/BUTA FIORICET 1 EACH TAB PO PRN ×3 (03:32→21:11)
[2017-04-15 05:44] LABS: ANION GAP 9 mEq/L (8-16); CALCIUM 9.5 mg/dL (8.5-10.4); CARBON DIOXIDE 20 mEq/l (22-31); CHLORIDE 97 mEq/L (97-110); CREATININE 0.8 mg/dL (0.7-1.3); GLOMERULAR FILTRATION RATE > 60; GLUCOSE 113 mg/dL (70-100); POTASSIUM 4.8 mEq/L (3.5-5.2); SODIUM 126 mEq/L (134-144)
[2017-04-15] MEDS: traMADol 50 MG TAB PO PRN ×2 (06:05→12:09)
[2017-04-15] MEDS: DEXAMETHASONE 4 MG TAB PO SCH ×3 (06:05→17:15)
--- NOTE | 2017-04-15 07:46 | NEUSURGPN ---
Assessment/Plan: Assessment: 67 yo M with SAH sp EVD placement Plan: -neuro: stable, headaches improved with EVD placement -head CT yesterday showed EVD in parenchymal tissue-Pt seen and examined by Dr Richard this am. Will contine with EVD clamped until wed am then pull after a new CT is obtained on Wed am -continue Q1 hour neuro checks -please keep SBP < 140 mmhg -PT/OT/ST-CPM -on nimodipine for vasospam prophylaxis -scd/domenico for dvt prophylaxis -please call with neuro changes -discussed/seen with Dr Richard Subjective: Awake and alert. NAD. Eating/drinking and voiding. No f/c/n/v/d. No neck/ chest/abd or gu complaints. Objective: AAOX4, +FC PERRL, EOMI, no facial droop 5/5 + light touch C/D/I at EVD Neuro Check Frequency: per routine Urinary Catheter in Place: No - Physician Discussed Patient with Dr.: Richard Patient Seen by : Jose Manuel Neurosurgery Physical Exam - Vitals, I&O, Labs I and O 04/14/17 04/15/17 04/16/17 05:59 05:59 05:59 Intake Total 2250 2644 Output Total 4073 2040 Balance -1823 604 Intake: Oral (ml) 2250 1325 IV Infused (ml) 1319 Ns 1,000 ml @ 100 mls/hr 1009 IV CONT NIA Rx#: [id number] niCARdipine/NACL 200 ml @ 310 Titrate IV CONT NIA Rx#: [id number] Output: Urine (ml) 3975 2000 Toilet 300 Urinal 3975 1700 CSF Drainage Amount 98 40 Ventriculostomy 98 40 Other: Number of Voids Toilet 1 Urinal 4 Number of Stools Toilet 0 Vital Signs Temp Pulse Resp BP Pulse Ox 37.0 C 52 L 20 137/74 H 94 04/15/17 05:00 04/15/17 07:33 04/15/17 07:33 04/15/17 07:33 04/15/17 07:33 Laboratory Results 04/10/17 04:05 04/15/17 05:00 ICD10 Worksheet Patient Problems: Problems Problem Status Onset Subarachnoid hemorrhage Acute
[2017-04-15] MEDS: FAMOTIDINE 20 MG TAB PO SCH (07:59)
[2017-04-15] MEDS: CETIRIZINE 10 MG TAB PO SCH (07:59)
[2017-04-15] MEDS: METHOCARBAMOL 750 MG TAB PO SCH ×3 (08:00→21:11)
[2017-04-15] MEDS: SENNOSIDES/DOCUSATE SODIUM TAB PO SCH ×2 (08:00→21:11)
[2017-04-15] MEDS: oxyCODONE IR 5 MG TAB PO PRN (08:00)
[2017-04-15] MEDS: MONTELUKAST SODIUM 10 MG TAB PO SCH (08:01)
[2017-04-15] MEDS: NEBIVOLOL HCL 5 MG TAB PO SCH (08:01)
[2017-04-15] MEDS: FENOFIBRATE 145 MG TAB PO SCH (08:03)
[2017-04-15] MEDS: POLYETHYLENE GLYCOL 3350 17 GM PKT PO PRN (08:04)
[2017-04-15] MEDS: BISACODYL 10 MG SUPP PR PRN (09:14)
--- NOTE | 2017-04-15 09:22 | PDINTPN ---
Privacy Manager Progress Note Assessment/Plan: Assessment/Plan: * Status post acute headache with subarachnoid hemorrhage 04/06. The etiology remains unclear. Angiogram did not show an aneurysm. Exact bleeding site not identified. Neurologic changes 04/09 consistent with possible spasm vs Hydrocephalus. Status post drain placement. -drain clamped today and will be clamped for 48 hours * Headache: Improved. But worse in the morning. * Hypertension. On nimodipine for spasm. Off nicardipine drip today for systolic below 140. * History rhinitis, allergies. * History of atrial fibrillation, status post ablation 5 years ago. * Constipation-continue bowel protocol Subjective: Complains of minimal headache in the morning. Denies any cough or shortness of breath. There is no chest pain. He is ambulating well with physical therapy Objective: Vital Signs Temp Pulse Resp BP Pulse Ox 37.2 C 55 L 12 135/78 H 92 04/15/17 08:00 04/15/17 08:01 04/15/17 08:00 04/15/17 08:01 04/15/17 08:00 Laboratory Results 04/10/17 04:05 04/15/17 05:00 04/14/17 04/15/17 04/16/17 05:59 05:59 05:59 Intake Total 2250 2644 Output Total 4073 2040 Balance -1823 604 Laboratory Results 04/10/17 04:05 04/15/17 05:00 04/14/17 10:43 CSF Tube Number 1 CSF Appearance CLOUDY H CSF Color PINK H CSF Supernatant Not Reported CSF WBC 217 /mm3 H /mm3 (0 - 5) CSF RBC 91190 /mm3 H /mm3 (0 - 0) CSF Neutrophils % 75 % H % (0 - 6) CSF Monos/Macrophage % 9 % % (0 - 45) Physical Exam - Physical Exam General Appearance: alert, no apparent distress EENT: PERRL/EOMI, normal ENT inspection, pharynx normal, TMs normal Neck: non-tender, full range of motion, supple, normal inspection Respiratory: chest non-tender, lungs clear, normal breath sounds Cardiac/Chest: normal peripheral pulses, regular rate, rhythm Peripheral Pulses: 2+: carotid (R), carotid (L), femoral (R), femoral (L), dorsalis-pedis (R), dorsalis-pedis (L) Abdomen: normal bowel sounds, non-tender, soft Male Genitalia: deferred Rectal: deferred Skin: normal color, warm/dry Extremities: normal range of motion, non-tender, normal inspection, normal capillary refill ICD10 Worksheet Patient Problems: Problems Problem Status Onset Subarachnoid hemorrhage Acute
[2017-04-15] MEDS: niCARdipine/NACL 200 ML IV SCH ×3 (09:33→22:33)
[2017-04-15] MEDS ORDERED: NS 1,000 ML IV SCH (10:00)
--- NOTE | 2017-04-15 13:48 | SOAPPROG ---
SOAP Progress Note Assessment/Plan: Assessment: Acupuncture consult ordered by Dr. Richard. Patient complains of frontal FREEMAN post subdural bleed 2-12/23 described as a constant throb. He also has R sided occipital and cervical pain and stiffness. Patient is alert and can carry on a conversation. He did notice challenges in filling out the acupuncture consent for treatment, "Shoot, I'm putting my height in the area of my weight and my weight where it should say my age." In general, his memory seems healthy. He could tell me about his kids and activities they were doing both past and present. He was able to recall birthdays, anniversary dates, etc. He is noticing a slight light sensitivity. He normally does not watch TV and said he is having some concentration issues where he prefers channel surfing and TV to his normal books on tape. He notices he needs to sleep most o the day. Patient notices bilateral cramping in his calves which is mostly relieved with compression. He has occasional quadricep cramping as well. He played football in college and says most mornings he wakes up stiff with R sided neck pain and "a board across his low back." Patient also complains of extreme constipation. He has had one small bowel movement in ten days. Normally his bowel movements are daily, mid morning, and "substantial". Treatment: Bilateral Auricular: Branch Acupuncture (BFA) protocol: Composed of five acupuncture points: Cingular gyrus, thalamus, omega 2, point zero, ordaz men. Shown to have an affect of the DIRECTOR OF HOSPITALITY and reduce pain. Developed by Dr. Sanjiv Templeton. Right Side: HT 4, 5, 7 Balance GB meridian, relaxes occiput (wrist crease images occiput ), relax cervical spine, improve blood flow, reduce inflammation, improve ROM in sidebending. SHIREEN 7 Balance BL meridian, improve mobility in flexion/extension. GB 34 Relax the muscles and tendons. GB 40 x 3 Balance GB meridian, reduce occipital FREEMAN and relax low back (ankle images occiput and hip), improve ROM in side bending. GB 41 Master point of "belt meridian", relax hips and low back, reduce occipital FREEMAN and tightness. ST 36 Increase qi (energy) and blood. Improve vitality. Increases HCL to aid in digestion and encourage bowel movement. ST 41 Decrease neck pain, improve neck rotation. Balance LR and SP meridians. BL 65 Ruthy point of BL meridian. Decreases pain in the spine in flexion and extension. Decrease frontal FREEMAN. Left Side: SI 3 Master point of the DU. Relax the spine, improve flexion and extension. Reduce frontal FREEMAN (hand images face). Balance BL meridian. SI 4 Balance BL meridian. Decrease pain in flexion and extension. Improve blood flow to face and reduce frontal FREEMAN. Ling Gu Extra Point to decrease low back pain. Reduce frontal FREEMAN. [place] Extra Point to decrease low back pain. Reduce frontal FREEMAN. [place] Extra Point translates from Palauan as "Reduce crick in neck from sleeping wrong." SP 9 x 2 Reduce low back pain. Balance meridian. Encourage bowel movement. KI 3, 7 Balance BL meridian. Reduce pain at occiput in flexion/extension. Improve blood flow to head and neck. LR 3, 5 Balance GB and LI meridian. Reduce neck and shoulder pain in side- bending. Decrease FREEMAN. Move the blood. SP [address] meridian. Encourage bowel movement. Decrease SCM tightness. Acupuncture points chosen using the principles of Dr. Fuentes's Balance Method. [place] retained for eighty minutes. Plan: Discussed the idea of "overoad" with Mr. Martinez and the importance of keeping stimulus low once he leaves the hospital. Encouraged him to take some time off, sleep, listen to his body and not to overdue it. Also recommended he seek out a behavioral project developer to assess his vision and see if any changes might need to be made to his current glasses prescription. Future acupuncture tx at [facility] available to him upon request. To reduce his FREEMAN and move the bowels, one treatment daily for three days is recommended. 04/15/17 13:17 Objective: Vital Signs Temp Pulse Resp BP Pulse Ox 37.0 C 49 L 12 142/83 H 94 04/15/17 12:15 04/15/17 12:15 04/15/17 12:15 04/15/17 12:15 04/15/17 12:15 Laboratory Results 04/10/17 04:05 04/15/17 05:00 04/14/17 04/15/17 04/16/17 05:59 05:59 05:59 Intake Total 8390 8962 Output Total 3862 0066 Balance -1823 604 ICD10 Worksheet Patient Problems: Problems Problem Status Onset Subarachnoid hemorrhage Acute
--- NOTE | 2017-04-15 16:37 | HOSPPROG ---
Hospitalist Progress Note Assessment/Plan: #SAH with hydrocephalus: goal SBP <140. PRN anti-hypertensives, nimodipine -EVD to 15, still high outpu. Decadron. -PT/OT #Hyponatremia: down bit with NS. 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 Repeat BMP, if down will fluid restrict #Acute encephalopathy: due SAH. Resolved, still a bit forgetful #HLD: statin #BPH: home med #Constipation: had bowel movement #FREEMAN: improved # Afib: prior ablation #Diet: regular #DVT ppx; SCDs Please call if questions, will follow along Subjective: FREEMAN better after accupuncture Objective: Vital Signs Temp Pulse Resp BP Pulse Ox 36.6 C 53 L 12 132/75 H 97 04/15/17 16:00 04/15/17 16:00 04/15/17 16:00 04/15/17 16:00 04/15/17 16:00 Laboratory Results 04/10/17 04:05 04/15/17 05:00 04/14/17 04/15/17 04/16/17 05:59 05:59 05:59 Intake Total 2250 2644 500 Output Total 4073 2040 250 Balance -1823 604 250 - Physical Exam Constitutional: no apparent distress Eyes: PERRL Ears, Nose, Mouth, Throat: moist mucous membranes Cardiovascular: regular rate and rhythym Respiratory: no respiratory distress Gastrointestinal: normoactive bowel sounds Genitourinary: no bladder fullness Skin: warm Musculoskeletal: full muscle strength Neurologic: AAOx3 (forgetful during interview), CN II-XII Intact Psychiatric: interacting appropriately ICD10 Worksheet Patient Problems: Problems Problem Status Onset Subarachnoid hemorrhage Acute
[2017-04-15] MEDS: ACETAMINOPHEN 325 MG TAB PO PRN (16:39)
[2017-04-15 17:27] LABS: ANION GAP 14 mEq/L (8-16); CALCIUM 9.6 mg/dL (8.5-10.4); CARBON DIOXIDE 14 mEq/l (22-31); CHLORIDE 95 mEq/L (97-110); CREATININE 0.8 mg/dL (0.7-1.3); GLOMERULAR FILTRATION RATE > 60; GLUCOSE 157 mg/dL (70-100); POTASSIUM 4.8 mEq/L (3.5-5.2); SODIUM 123 mEq/L (134-144)
[2017-04-15] MEDS: ROSUVASTATIN CALCIUM 20 MG TAB PO SCH (21:11)
[2017-04-16] MEDS: niMODipine 30 MG CAP PO SCH ×6 (01:29→21:16)
[2017-04-16] MEDS: traMADol 50 MG TAB PO PRN ×4 (01:29→20:15)
[2017-04-16] MEDS: DEXAMETHASONE 4 MG TAB PO SCH ×4 (01:29→16:38)
[2017-04-16] MEDS: niCARdipine/NACL 200 ML IV SCH ×4 (03:02→20:15)
[2017-04-16] MEDS: oxyCODONE IR 5 MG TAB PO PRN (04:46)
[2017-04-16 06:03] LABS: ANION GAP 12 mEq/L (8-16); CALCIUM 9.6 mg/dL (8.5-10.4); CARBON DIOXIDE 19 mEq/l (22-31); CHLORIDE 96 mEq/L (97-110); CREATININE 0.8 mg/dL (0.7-1.3); GLOMERULAR FILTRATION RATE > 60; GLUCOSE 124 mg/dL (70-100); POTASSIUM 4.7 mEq/L (3.5-5.2); SODIUM 127 mEq/L (134-144)
--- NOTE | 2017-04-16 07:17 | NEUSURGPN ---
Assessment/Plan: Assessment: 67 yo M with SAH sp EVD placement Plan: -neuro: stable, headaches improved with EVD placement -headaches better with acupuncture yesterday-appreciate their care -recent head CT showed EVD in parenchymal tissue-Pt seen and examined by Dr Richard yesterday. Will contine with EVD clamped until Thurs am then pull after a new CT is obtained on Thurs am -continue Q1-2 hour neuro checks -please keep SBP < 140 mmhg -PT/OT/ST-CPM -on nimodipine for vasospam prophylaxis -scd/domenico for dvt prophylaxis -please call with neuro changes -discussed with Dr Richard Subjective: Awake and alert. NAD. Eating/drinking and voiding. No f/c/n/v/d. Objective: AAOX4, +FC PERRL, EOMI, no facial droop 5/5 + light touch C/D/I at EVD Neuro Check Frequency: per routine Urinary Catheter in Place: No - Physician Discussed Patient with Dr.: Richard Neurosurgery Physical Exam - Vitals, I&O, Labs I and O 04/15/17 04/16/17 04/17/17 05:59 05:59 05:59 Intake Total 2644 4060 Output Total 2040 1450 Balance 604 2610 Intake: Oral (ml) 1325 2100 IV Infused (ml) 1319 1960 Ns 1,000 ml @ 100 mls/hr 976 IV AD NIA Rx#:[id number] Ns 1,000 ml @ 100 mls/hr 1009 IV CONT NIA Rx#: [id number] niCARdipine/NACL 200 ml @ 310 984 Titrate IV CONT NIA Rx#: [id number] Output: Urine (ml) 2000 1450 Toilet 300 Urinal 1700 1450 CSF Drainage Amount 40 Ventriculostomy 40 Other: Intake Quantity Yes Sufficient Number of Voids Toilet 1 1 Urinal 4 2 Number of Stools Toilet 0 Vital Signs Temp Pulse Resp BP Pulse Ox 37.0 C 52 L 14 124/66 H 96 04/16/17 04:00 04/16/17 06:00 04/16/17 06:00 04/16/17 06:00 04/16/17 06:00 Laboratory Results 04/10/17 04:05 04/16/17 04:55 ICD10 Worksheet Patient Problems: Problems Problem Status Onset Subarachnoid hemorrhage Acute
[2017-04-16] MEDS: POLYETHYLENE GLYCOL 3350 17 GM PKT PO PRN (08:05)
[2017-04-16] MEDS: LACTULOSE 20 GM/30 ML UDCUP PO PRN (08:05)
[2017-04-16] MEDS: NEBIVOLOL HCL 5 MG TAB PO SCH (08:06)
[2017-04-16] MEDS: METHOCARBAMOL 750 MG TAB PO SCH ×3 (08:06→21:16)
[2017-04-16] MEDS: SENNOSIDES/DOCUSATE SODIUM TAB PO SCH ×2 (08:06→20:14)
[2017-04-16] MEDS: CETIRIZINE 10 MG TAB PO SCH (08:06)
[2017-04-16] MEDS: FENOFIBRATE 145 MG TAB PO SCH (08:06)
[2017-04-16] MEDS: ACET/CAFFEINE/BUTA FIORICET 1 EACH TAB PO PRN ×3 (08:06→20:15)
[2017-04-16] MEDS: BISACODYL 10 MG SUPP PR PRN (08:06)
[2017-04-16] MEDS: MONTELUKAST SODIUM 10 MG TAB PO SCH (08:06)
[2017-04-16] MEDS ORDERED: MAGNESIUM CITRATE 300 ML BOTTLE PO ONE (09:25)
--- NOTE | 2017-04-16 09:25 | PDINTPN ---
Educational Audiologist Progress Note Assessment/Plan: Assessment/Plan: * Status post acute headache with subarachnoid hemorrhage 04/06. The etiology remains unclear. Angiogram did not show an aneurysm. Exact bleeding site not identified. Neurologic changes 04/09 consistent with possible spasm vs Hydrocephalus. Status post drain placement. -drain clamped today and will be clamped for 48 hours * Headache: Improved. But worse in the morning. * Hyponatremia-improved with fluid restriction. * Hypertension. On nimodipine for spasm. Off nicardipine drip today for systolic below 140. * History rhinitis, allergies. * History of atrial fibrillation, status post ablation 5 years ago. * Constipation-continue bowel protocol. We will try magnesium citrate Subjective: Headache markedly improved. Still having problems with constipation. Objective: Vital Signs Temp Pulse Resp BP Pulse Ox 37.0 C 63 14 135/110 H 95 04/16/17 04:00 04/16/17 08:00 04/16/17 08:00 04/16/17 08:00 04/16/17 08:00 Laboratory Results 04/10/17 04:05 04/16/17 04:55 04/15/17 04/16/17 04/17/17 05:59 05:59 05:59 Intake Total 2644 4060 Output Total 2040 1450 300 Balance 604 2610 -300 Physical Exam - Physical Exam General Appearance: WD/WN, alert, no apparent distress EENT: PERRL/EOMI, normal ENT inspection, pharynx normal, TMs normal Neck: non-tender, full range of motion, supple, normal inspection Respiratory: chest non-tender, lungs clear, normal breath sounds Cardiac/Chest: normal peripheral pulses, regular rate, rhythm Peripheral Pulses: 2+: carotid (R), carotid (L), femoral (R), femoral (L), dorsalis-pedis (R), dorsalis-pedis (L) Abdomen: normal bowel sounds, non-tender, soft Male Genitalia: deferred Rectal: deferred Skin: normal color, warm/dry Extremities: normal range of motion, non-tender, normal inspection, normal capillary refill ICD10 Worksheet Patient Problems: Problems Problem Status Onset Subarachnoid hemorrhage Acute
--- NOTE | 2017-04-16 13:46 | SOAPPROG ---
SOAP Progress Note Assessment/Plan: Assessment:Local Qi and Blood stagnation, some preexisting, partly aggravated by inactivity. Large intestine Qi stagnation Plan: Activate and regulate Bowels, Regulate Qi and Blood, relieve pain. Treat daily while in hospital, as long as symptoms are present. Treatment: LI 4, LI 11, SJ 6, St 37, St 25, Sp 15, Phil 12, GB 34, Sp 6, Octavia 7, SI 3, Yintang. Retain needles for about 45 mins, with additional manipulation about every 10- 15 minutes Patient reported neck pain down to about 2/10 after treatment. 04/16/17 13:47 Subjective: Met with patient about 10:30 AM, along with his , Sammi. He reported significant improvement in his headache, post acupuncture treatment yesterday with Zak Mcdaniel. I discussed his case with Precious yesterday evening. Today he reports 3 primary chief complaints 1. Neck pain, mainly lower neck. pain 8/10 2. Low back pain 3. constipation- almost no bowel movements for about 10 days (since onset) Other complaint is calf pain. He informed me that he is hard of hearing but is able to respond if he can hear any questions. He did report some challenge with concentration, that it is a strain, may worsen his headache, so he does not yet try to focus or concentrate, such as trying to read. He seemed generally upbeat, about his family, his work, his life in general, and was able to carry on a very interesting conversation about such things, though he incorrectly named a friend in [place] whose family I also know. He did know the names and activities of his friend's children. Pulse-full Tongue- Red tip and sides, somewhat thick white coat. Objective: Vital Signs Temp Pulse Resp BP Pulse Ox 37.0 C 61 19 133/64 H 93 04/16/17 04:00 04/16/17 12:00 04/16/17 12:00 04/16/17 12:00 04/16/17 12:00 Laboratory Results 04/10/17 04:05 04/16/17 04:55 04/15/17 04/16/17 04/17/17 05:59 05:59 05:59 Intake Total 2641 4060 Output Total 6710 1450 300 Balance 604 2610 -300 ICD10 Worksheet Patient Problems: Problems Problem Status Onset Subarachnoid hemorrhage Acute
--- NOTE | 2017-04-16 15:22 | HOSPPROG ---
Hospitalist Progress Note Assessment/Plan: 67 yo M w htn and hyperlipidemia here w SAH SAH with hydrocephalus: goal SBP <140. PRN anti-hypertensives, nimodipine -EVD to 15, still high outpu. Decadron. -PT/OT ct IN am and drain removal if stable Hyponatremia: down bit with NS. 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 Repeat BMP, if down will fluid restrict Acute encephalopathy: due SAH. Resolved, still a bit forgetful pretty clear today constipation: increase miralax to bid scheduled #HLD: statin #BPH: home med #Constipation: had bowel movement #FREEMAN: improved # Afib: prior ablation #Diet: regular #DVT ppx; SCDs Please call if questions, will follow along Subjective: feels well. FREEMAN well controlled. constipated. case d/w dr hilliard Objective: Vital Signs Temp Pulse Resp BP Pulse Ox 37.0 C 61 19 133/66 H 92 04/16/17 04:00 04/16/17 14:00 04/16/17 14:00 04/16/17 14:00 04/16/17 14:00 Laboratory Results 04/10/17 04:05 04/16/17 04:55 04/15/17 04/16/17 04/17/17 05:59 05:59 05:59 Intake Total 2644 4060 Output Total 2040 1450 300 Balance 604 2610 -300 - Physical Exam Constitutional: no apparent distress, appears nourished Eyes: PERRL, anicteric sclera Ears, Nose, Mouth, Throat: moist mucous membranes, hearing normal Cardiovascular: regular rate and rhythym, no murmur, rub, or gallop Respiratory: no respiratory distress, no rales or rhonchi Gastrointestinal: normoactive bowel sounds, soft, non-tender abdomen Genitourinary: no bladder fullness, No yo in urethra Skin: warm, normal color Musculoskeletal: full muscle strength, no muscle tenderness Neurologic: AAOx3 Psychiatric: interacting appropriately ICD10 Worksheet Patient Problems: Problems Problem Status Onset Subarachnoid hemorrhage Acute
[2017-04-16] MEDS: POLYETHYLENE GLYCOL 3350 17 GM PKT PO SCH (20:14)
[2017-04-16] MEDS: ROSUVASTATIN CALCIUM 20 MG TAB PO SCH (20:14)
[2017-04-17] MEDS: niMODipine 30 MG CAP PO SCH ×6 (01:09→21:35)
[2017-04-17] MEDS: DEXAMETHASONE 4 MG TAB PO SCH ×4 (01:10→17:29)
[2017-04-17] MEDS: HYDROmorphONE/DILAUDID 1 MG/ML SYR IVP PRN (01:42)
[2017-04-17] MEDS: traMADol 50 MG TAB PO PRN ×3 (05:45→20:29)
[2017-04-17 06:14] LABS: ANION GAP 9 mEq/L (8-16); CALCIUM 9.2 mg/dL (8.5-10.4); CARBON DIOXIDE 21 mEq/l (22-31); CHLORIDE 98 mEq/L (97-110); CREATININE 0.8 mg/dL (0.7-1.3); GLOMERULAR FILTRATION RATE > 60; GLUCOSE 119 mg/dL (70-100); POTASSIUM 4.8 mEq/L (3.5-5.2); SODIUM 128 mEq/L (134-144)
[2017-04-17] MEDS: ACET/CAFFEINE/BUTA FIORICET 1 EACH TAB PO PRN ×3 (06:33→20:30)
[2017-04-17] MEDS: niCARdipine/NACL 200 ML IV SCH (08:06)
[2017-04-17] MEDS: CETIRIZINE 10 MG TAB PO SCH (08:08)
[2017-04-17] MEDS: POLYETHYLENE GLYCOL 3350 17 GM PKT PO SCH ×2 (08:08→20:27)
[2017-04-17] MEDS: MONTELUKAST SODIUM 10 MG TAB PO SCH (08:08)
[2017-04-17] MEDS: METHOCARBAMOL 750 MG TAB PO SCH ×3 (08:08→21:35)
[2017-04-17] MEDS: SENNOSIDES/DOCUSATE SODIUM TAB PO SCH ×2 (08:08→20:28)
[2017-04-17] MEDS: NEBIVOLOL HCL 5 MG TAB PO SCH (08:08)
[2017-04-17] MEDS: FENOFIBRATE 145 MG TAB PO SCH (08:09)
--- NOTE | 2017-04-17 08:40 | NEUSURGPN ---
Assessment/Plan: Assessment: 67 yo M with SAH sp EVD placement Plan: -neuro: stable, headaches improved with EVD placement -headaches better with acupuncture yesterday-appreciate their care -Head CT this am stable with resolving blood -Patient has tolerated EVD clamp x 2 days, HCT stable, will remove EVD today -Plan to keep in ICU for one more night to monitor neuro exam, possible transfer to floor tomorrow -continue Q1-2 hour neuro checks -please keep SBP < 140 mmhg -PT/OT/ST-CPM -on nimodipine for vasospam prophylaxis -scd/domenico for dvt prophylaxis -patient would like to go to in patient rehab when discharged, he feels he is unsteady on his feet-he is from [place]. Rehab has already been consulted to eval -please call with neuro changes Discussed with Dr Richard Subjective: Patient denies headache, feeling better Objective: AAOX4, +FC PERRL, EOMI, no facial droop 5/5 + light touch C/D/I at EVD Neuro Check Frequency: per routine Urinary Catheter in Place: No - Physician Discussed Patient with : Jose Manuel Neurosurgery Physical Exam - Vitals, I&O, Labs I and O 04/16/17 04/17/17 04/18/17 05:59 05:59 05:59 Intake Total 4060 1823 Output Total 1450 1877 Balance 2610 -54 Intake: Oral (ml) 2100 1000 IV Infused (ml) 1960 823 Ns 1,000 ml @ 100 mls/hr 976 IV AD NIA Rx#:[id number] niCARdipine/NACL 200 ml @ 984 823 Titrate IV CONT NIA Rx#: [id number] Output: Urine (ml) 1450 1877 Toilet 677 Urinal 1450 1200 Other: Intake Quantity Yes Sufficient Number of Voids Toilet 1 3 Urinal 2 Vital Signs Temp Pulse Resp BP Pulse Ox 37.0 C 530 H 19 147/92 H 95 04/16/17 04:00 04/17/17 08:08 04/17/17 06:00 04/17/17 08:08 04/17/17 06:00 Laboratory Results 04/10/17 04:05 04/17/17 05:50 ICD10 Worksheet Patient Problems: Problems Problem Status Onset Subarachnoid hemorrhage Acute
--- NOTE | 2017-04-17 09:38 | PDINTPN ---
Bit Bender Progress Note Assessment/Plan: Assessment/Plan: * Status post acute headache with subarachnoid hemorrhage 04/06. The etiology remains unclear. Angiogram did not show an aneurysm. Exact bleeding site not identified. Neurologic changes 04/09 consistent with possible spasm vs Hydrocephalus. Status post drain placement. -drain out today * Headache: Improved. But worse in the morning. * Hyponatremia-improved with fluid restriction. * Hypertension. On nimodipine for spasm. Off nicardipine drip today for systolic below 140. * History rhinitis, allergies. * History of atrial fibrillation, status post ablation 5 years ago. * Constipation-continue bowel protocol. We will try magnesium citrate * Disposition-acute rehab soon Subjective: Resting comfortably. Denies any pain. Awake and alert and oriented x3 Objective: Vital Signs Temp Pulse Resp BP Pulse Ox 37.0 C 530 H 16 147/92 H 95 04/17/17 08:00 04/17/17 08:08 04/17/17 08:00 04/17/17 08:08 04/17/17 08:00 Laboratory Results 04/10/17 04:05 04/17/17 05:50 04/16/17 04/17/17 04/18/17 05:59 05:59 05:59 Intake Total 4060 1823 Output Total 1450 1877 Balance 2610 -54 Physical Exam - Physical Exam General Appearance: WD/WN, alert, no apparent distress EENT: PERRL/EOMI, normal ENT inspection, pharynx normal, TMs normal Neck: non-tender, full range of motion, supple, normal inspection Respiratory: chest non-tender, lungs clear, normal breath sounds Cardiac/Chest: normal peripheral pulses, regular rate, rhythm Peripheral Pulses: 2+: carotid (R), carotid (L), femoral (R), femoral (L), dorsalis-pedis (R), dorsalis-pedis (L) Abdomen: normal bowel sounds, non-tender, soft Male Genitalia: deferred Rectal: deferred Skin: normal color, warm/dry Neuro/Psych: no motor/sensory deficits, alert, normal mood/affect, oriented x 3 ICD10 Worksheet Patient Problems: Problems Problem Status Onset Subarachnoid hemorrhage Acute
--- NOTE | 2017-04-17 10:52 | SOAPPROG ---
SOAP Progress Note Assessment/Plan: Assessment:Local Qi and Blood stagnation, some preexisting, partly aggravated by inactivity. Large intestine Qi stagnation Plan: Activate and regulate Bowels, Regulate Qi and Blood, relieve pain. Treat daily while in hospital, as long as symptoms are present. Treatment: LI 4, SJ 6, St 36, 37, St 25, Sp 15, Phil 6,12, Sp 6,10, Octavia 7, SI 3. Retain needles for about 45 mins, with additional manipulation about every 10- 15 minutes 04/17/17 10:52 Subjective: Patient reports neck pain was improved throughout day yesterday, came back to some extent this morning, which is common for him. Reports pain at about a 2 currently. Still no BM. Discussed his missing the name of his friend in [place] , but he said he also knows someone else with the name he used. He is aware that he should continue to rest from strenuous cognitive tasks. He appears quite alert and able to think clearly, but may tire easily. Objective: Vital Signs Temp Pulse Resp BP Pulse Ox 37.0 C 57 L 14 136/80 H 95 04/17/17 08:00 04/17/17 10:00 04/17/17 10:00 04/17/17 10:00 04/17/17 10:00 Laboratory Results 04/10/17 04:05 04/17/17 05:50 04/16/17 04/17/17 04/18/17 05:59 05:59 05:59 Intake Total 2210 8377 Output Total 7653 0243 Balance 2610 -54 ICD10 Worksheet Patient Problems: Problems Problem Status Onset Subarachnoid hemorrhage Acute
--- NOTE | 2017-04-17 12:41 | HOSPPROG ---
Hospitalist Progress Note Assessment/Plan: 67 yo M w htn and hyperlipidemia here w SAH SAH with hydrocephalus: goal SBP <140. PRN anti-hypertensives, nimodipine -EVD to 15, still high outpu. Decadron. -PT/OT drain out Hyponatremia: down bit with NS. 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 Repeat BMP, if down will fluid restrict improved Acute encephalopathy: due SAH. Resolved, still a bit forgetful pretty clear today constipation: increase miralax to bid scheduled add add'l miralax and suppository #HLD: statin #BPH: home med #Constipation: had bowel movement #FREEMAN: improved # Afib: prior ablation #Diet: regular #DVT ppx; SCDs Please call if questions, will follow along Subjective: case d/w dr hilliard. no bm Objective: Vital Signs Temp Pulse Resp BP Pulse Ox 37.0 C 57 L 14 136/80 H 95 04/17/17 08:00 04/17/17 10:00 04/17/17 10:00 04/17/17 10:00 04/17/17 10:00 Laboratory Results 04/10/17 04:05 04/17/17 05:50 04/16/17 04/17/17 04/18/17 05:59 05:59 05:59 Intake Total 4060 1823 Output Total 1450 1877 Balance 2610 -54 - Physical Exam Constitutional: no apparent distress, appears nourished Eyes: PERRL, anicteric sclera Ears, Nose, Mouth, Throat: moist mucous membranes, hearing normal Cardiovascular: regular rate and rhythym, no murmur, rub, or gallop Respiratory: no respiratory distress, no rales or rhonchi Gastrointestinal: normoactive bowel sounds, soft, non-tender abdomen Genitourinary: no bladder fullness, No yo in urethra Skin: warm, normal color Musculoskeletal: full muscle strength, no muscle tenderness Neurologic: AAOx3 ICD10 Worksheet Patient Problems: Problems Problem Status Onset Subarachnoid hemorrhage Acute
[2017-04-17] MEDS: BISACODYL 10 MG SUPP PR PRN (12:43)
[2017-04-17] MEDS ORDERED: POLYETHYLENE GLYCOL 3350 17 GM PKT PO ONE (12:43)
[2017-04-17] MEDS: ROSUVASTATIN CALCIUM 20 MG TAB PO SCH (20:28)
[2017-04-17] MEDS: MELATONIN 3 MG TAB PO PRN (20:29)
[2017-04-18] MEDS: DEXAMETHASONE 4 MG TAB PO SCH ×4 (01:29→20:45)
[2017-04-18] MEDS: niMODipine 30 MG CAP PO SCH ×6 (01:33→21:59)
[2017-04-18] MEDS ORDERED: MAGNESIUM CITRATE 300 ML BOTTLE PO ONE (08:36)
--- NOTE | 2017-04-18 08:40 | NEUSURGPN ---
Assessment/Plan: Assessment: 67 yo M with SAH sp EVD placement-- removed on 04/17 Plan: -neuro: stable, headaches improved -headaches better with acupuncture yesterday-appreciate their care -EVD removed on 04/17, tolerated well -can change BP parameters to SBP < 160 mmhg -PT/OT/ST-CPM -on nimodipine for vasospam prophylaxis (total of 21 days) -constipation, try Mg Citrate -decadron taper -scd/domenico for dvt prophylaxis -dispo: Home later today if has bowel movement and cleared by hospitalist. Will need to FU with Dr. Richard as outpatient in 1 week prior to flying to [place] Discussed with Dr Richard Subjective: Sitting in bedside chair. Headaches tolerable and improved. Has morning neck and back stiffness. Objective: Awake. Alert. PERRL. EOMI Facial expression symmetrical Speech fluent UE and LE strength full at 5/5 EVD site c/d/i - Physician Discussed Patient with Dr.: Richard Neurosurgery Physical Exam - Vitals, I&O, Labs I and O 04/17/17 04/18/17 04/19/17 05:59 05:59 05:59 Intake Total 1823 1163.9 Output Total 1877 900 Balance -54 263.9 Intake: Oral (ml) 1000 1100 IV Intake (ml) 63.9 IV Infused (ml) 823 niCARdipine/NACL 200 ml @ 823 Titrate IV CONT NIA Rx#: [id number] Output: Urine (ml) 1877 900 Toilet 677 Urinal 1200 900 Other: Intake Quantity Yes Sufficient Output Comment Toilet passing flatus, no BM Number of Voids Toilet 3 2 Number of Stools Toilet 0 Vital Signs Temp Pulse Resp BP Pulse Ox 36.7 C 54 L 18 144/68 H 92 04/17/17 20:00 04/18/17 06:00 04/18/17 06:00 04/18/17 06:00 04/18/17 06:00 Laboratory Results 04/10/17 04:05 04/17/17 05:50 ICD10 Worksheet Patient Problems: Problems Problem Status Onset Subarachnoid hemorrhage Acute
[2017-04-18] MEDS ORDERED: *MD ORDERING ONLY-DEXAMETHASONE TAPER PO SCH (08:45)
[2017-04-18] MEDS: CETIRIZINE 10 MG TAB PO SCH (09:04)
[2017-04-18] MEDS: FENOFIBRATE 145 MG TAB PO SCH (09:04)
[2017-04-18] MEDS: MONTELUKAST SODIUM 10 MG TAB PO SCH (09:05)
[2017-04-18] MEDS: SENNOSIDES/DOCUSATE SODIUM TAB PO SCH ×2 (09:05→20:54)
[2017-04-18] MEDS: METHOCARBAMOL 750 MG TAB PO SCH ×3 (09:05→22:00)
[2017-04-18] MEDS: NEBIVOLOL HCL 5 MG TAB PO SCH (09:07)
--- NOTE | 2017-04-18 09:52 | PDINTPN ---
Director Of Leadership Development Progress Note Assessment/Plan: Assessment/Plan: * Status post acute headache with subarachnoid hemorrhage 04/06. Stable -drain out * Headache: Improved. But worse in the morning. * Hyponatremia-improved with fluid restriction. * Hypertension. On nimodipine for spasm. Off nicardipine drip today for systolic below 140. * History rhinitis, allergies. * History of atrial fibrillation, status post ablation 5 years ago. * Constipation-continue bowel protocol. We will try magnesium citrate * Disposition-acute rehab soon. Will transfer to floor Subjective: Up in chair. Resting comfortably. Headache is minimal. Objective: Vital Signs Temp Pulse Resp BP Pulse Ox 36.7 C 57 L 18 142/77 H 92 04/17/17 20:00 04/18/17 09:07 04/18/17 06:00 04/18/17 09:07 04/18/17 06:00 Laboratory Results 04/10/17 04:05 04/17/17 05:50 04/17/17 04/18/17 04/19/17 05:59 05:59 05:59 Intake Total 1823 1163.9 Output Total 1877 900 Balance -54 263.9 Physical Exam - Physical Exam General Appearance: alert, no apparent distress EENT: PERRL/EOMI, normal ENT inspection Neck: non-tender, full range of motion, supple, normal inspection Respiratory: chest non-tender, lungs clear, normal breath sounds Cardiac/Chest: normal peripheral pulses, regular rate, rhythm Peripheral Pulses: 2+: carotid (R), carotid (L), femoral (R), femoral (L), dorsalis-pedis (R), dorsalis-pedis (L) Abdomen: normal bowel sounds, non-tender, soft Male Genitalia: deferred Rectal: deferred Skin: normal color, warm/dry Extremities: normal range of motion, non-tender, normal inspection, normal capillary refill Neuro/Psych: no motor/sensory deficits, alert, normal mood/affect, oriented x 3 ICD10 Worksheet Patient Problems: Problems Problem Status Onset Subarachnoid hemorrhage Acute
[2017-04-18] MEDS: POLYETHYLENE GLYCOL 3350 17 GM PKT PO SCH ×2 (12:35→20:54)
--- NOTE | 2017-04-18 16:09 | HOSPPROG ---
Hospitalist Progress Note Assessment/Plan: 67 yo M w htn and hyperlipidemia here w SAH SAH with hydrocephalus: goal SBP <140. PRN anti-hypertensives, nimodipine dexamethasone taper -PT/OT drain out Hyponatremia: down bit with NS. 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 Repeat BMP, if down will fluid restrict improved Acute encephalopathy: due SAH. Resolved, still a bit forgetful pretty clear today constipation: increase miralax to bid scheduled add add'l miralax and suppository #HLD: statin #BPH: home med #Constipation: resolved #FREEMAN: improved # Afib: prior ablation #Diet: regular #DVT ppx; SCDs Please call if questions, will follow along Subjective: moved bowels. Objective: Vital Signs Temp Pulse Resp BP Pulse Ox 36.3 C 53 L 14 130/77 H 94 04/18/17 14:00 04/18/17 14:00 04/18/17 14:00 04/18/17 14:00 04/18/17 14:00 Laboratory Results 04/10/17 04:05 04/17/17 05:50 04/17/17 04/18/17 04/19/17 05:59 05:59 05:59 Intake Total 1823 1163.9 Output Total 1877 900 Balance -54 263.9 - Physical Exam Constitutional: no apparent distress, appears nourished Eyes: PERRL, anicteric sclera Ears, Nose, Mouth, Throat: moist mucous membranes, hearing normal Cardiovascular: regular rate and rhythym, no murmur, rub, or gallop Respiratory: no respiratory distress, no rales or rhonchi Gastrointestinal: normoactive bowel sounds, soft, non-tender abdomen, No rebound Genitourinary: No yo in urethra Skin: warm, normal color Musculoskeletal: full muscle strength, no muscle tenderness Neurologic: AAOx3, sensation intact bilaterally Psychiatric: interacting appropriately, not anxious ICD10 Worksheet Patient Problems: Problems Problem Status Onset Subarachnoid hemorrhage Acute
--- NOTE | 2017-04-18 19:46 | SOAPPROG ---
SOAP Progress Note Assessment/Plan: Assessment: Acupuncture consult ordered by Dr. Richard. Patient complains of frontal FREEMAN post subarachnoid bleed 2-12/23 described as a constant throb. He also has R sided occipital and cervical pain and stiffness. Patient is alert and can carry on a conversation. He did notice challenges in filling out the acupuncture consent for treatment, "Shoot, I'm putting my height in the area of my weight and my weight where it should say my age." In general, his memory seems healthy. He could tell me about his kids and activities they were doing both past and present. He was able to recall birthdays, anniversary dates, etc. He is noticing a slight light sensitivity. He normally does not watch TV and said he is having some concentration issues where he prefers channel surfing and TV to his normal books on tape. He notices he needs to sleep most o the day. Patient notices bilateral cramping in his calves which is mostly relieved with compression. He has occasional quadricep cramping as well. He played football in college and says most mornings he wakes up stiff with R sided neck pain and "a board across his low back." Patient also complains of extreme constipation. He has had one small bowel movement in ten days. Normally his bowel movements are daily, mid morning, and "substantial". Treatment: Bilateral Auricular: Pluckemin Acupuncture (BFA) protocol: Composed of five acupuncture points: Cingular gyrus, thalamus, omega 2, point zero, ordaz men. Shown to have an affect of the BREAD OVEN OPERATOR and reduce pain. Developed by Dr. Sanjiv Templeton. Right Side: HT 4, 5, 7 Balance GB meridian, relaxes occiput (wrist crease images occiput ), relax cervical spine, improve blood flow, reduce inflammation, improve ROM in sidebending. SHIREEN 7 Balance BL meridian, improve mobility in flexion/extension. GB 34 Relax the muscles and tendons. GB 40 x 3 Balance GB meridian, reduce occipital FREEMAN and relax low back (ankle images occiput and hip), improve ROM in side bending. GB 41 Master point of "belt meridian", relax hips and low back, reduce occipital FREEMAN and tightness. ST 36 Increase qi (energy) and blood. Improve vitality. Increases HCL to aid in digestion and encourage bowel movement. ST 41 Decrease neck pain, improve neck rotation. Balance LR and SP meridians. BL 65 Ruthy point of BL meridian. Decreases pain in the spine in flexion and extension. Decrease frontal FREEMAN. Left Side: SI 3 Master point of the DU. Relax the spine, improve flexion and extension. Reduce frontal FREEMAN (hand images face). Balance BL meridian. SI 4 Balance BL meridian. Decrease pain in flexion and extension. Improve blood flow to face and reduce frontal FREEMAN. Ling Gu Extra Point to decrease low back pain. Reduce frontal FREEMAN. Da Veronica Extra Point to decrease low back pain. Reduce frontal FREEMAN. Soco Phillips Extra Point translates from Bengali as "Reduce crick in neck from sleeping wrong." SP 9 x 2 Reduce low back pain. Balance meridian. Encourage bowel movement. KI 3, 7 Balance BL meridian. Reduce pain at occiput in flexion/extension. Improve blood flow to head and neck. LR 3, 5 Balance GB and LI meridian. Reduce neck and shoulder pain in side- bending. Decrease FREEMAN. Move the blood. SP [address] meridian. Encourage bowel movement. Decrease SCM tightness. Acupuncture points chosen using the principles of Dr. Fuentes's Balance Method. [place] retained for eighty minutes. Plan: Discussed the idea of "overload" with Mr. Martinez and the importance of keeping stimulus low once he leaves the hospital. Encouraged him to take some time off, sleep, listen to his body and not to overdue it. Also recommended he seek out a behavioral pediatric dental assistant to assess his vision and see if any changes might need to be made to his current glasses prescription. Future acupuncture tx at [facility] available to him upon request. To reduce his FREEMAN and move the bowels, one treatment daily for three days is recommended. 04/15/17 13:17 04/18/17 19:36 Patient complains of frontal FREEMAN post subarachnoid bleed -10/25. Constant throb dissipated with the removal of the drainage tube. Today he complains of bilateral occipital and cervical pain and stiffness. This has been chronic "for years", and aggravated by inactivity. He feels acupuncture greatly reduces the pain and stiffness. Patient is alert and can carry on a conversation. He did repeat several stories he told me at his last acupuncture appointment. Patient notices bilateral cramping in his calves which is some what relieved with compression. Upon palpation there was noticeable cramping and tightness, especially in the L calf. Patient also complains of extreme constipation. He is still not having regular bowel movements. Treatment: Bilateral Auricular: Pluckemin Acupuncture (BFA) protocol: Composed of five acupuncture points: Cingular gyrus, thalamus, omega 2, point zero, ordaz men. Shown to have an affect of the BREAD OVEN OPERATOR and reduce pain. Developed by Dr. Sanjiv Templeton. Left Side: HT 4, 5, 7 Balance GB meridian, relaxes occiput (wrist crease images occiput ), relax cervical spine, improve blood flow, reduce inflammation, improve ROM in sidebending. SHIREEN 7 Balance BL meridian, improve mobility in flexion/extension. GB 34 Relax the muscles and tendons. GB 40 Balance GB meridian, reduce occipital FREEMAN and relax low back (ankle images occiput and hip), improve ROM in side bending. GB 41 Master point of "belt meridian", relax hips and low back, reduce occipital FREEMAN and tightness. ST 36 Increase qi (energy) and blood. Improve vitality. Increases HCL to aid in digestion and encourage bowel movement. ST 41 Decrease neck pain, improve neck rotation. Balance LR and SP meridians. BL 65 Ruthy point of BL meridian. Decreases pain in the spine in flexion and extension. Decrease frontal FREEMAN. BL 67 Relieve spasm in calf GB 44 Relieve spasm in calf Right Side: SI 3 Master point of the DU. Relax the spine, improve flexion and extension. Reduce frontal FREEMAN (hand images face). Balance BL meridian. SI 4 Balance BL meridian. Decrease pain in flexion and extension. Improve blood flow to face and reduce frontal FREEMAN. Ling Gu Extra Point to decrease low back pain. Reduce frontal FREEMAN. Da Veronica Extra Point to decrease low back pain. Reduce frontal FREEMAN. Soco Phillips Extra Point translates from Bengali as "Reduce crick in neck from sleeping wrong." SP 9 x 2 Reduce low back pain. Balance meridian. Encourage bowel movement. KI 3, 7 Balance BL meridian. Reduce pain at occiput in flexion/extension. Improve blood flow to head and neck. LR 3, 5 x 2 Balance GB and LI meridian. Reduce neck and shoulder pain in side- bending. Decrease FREEMAN. Move the blood. SP 3, [address] meridian. Encourage bowel movement. Decrease SCM tightness. These acupuncture points chosen using the principles of Dr. Fuentes's Balance Method. Trigger point work was done on his L calf, however only one spot fasciculated. Patient had minimal relief from this technique tonight. I decided to treat the Taniya Well points: BL 67 and GB 44. He said his calf relaxed instantle. [place] retained for one hour. Plan: Mr. Martinez would like to continue with acupuncture treatments while he is at [facility]. A 9 a.m. appointment has been scheduled with Wood Murillo L.Ac. ([facility]) on Friday, April 19, 2017. Objective: Vital Signs Temp Pulse Resp BP Pulse Ox 36.9 C 53 L 16 130/77 H 94 04/18/17 19:23 04/18/17 14:00 04/18/17 19:23 04/18/17 14:00 04/18/17 14:00 Laboratory Results 04/10/17 04:05 04/17/17 05:50 04/17/17 04/18/17 04/19/17 05:59 05:59 05:59 Intake Total 1823 1163.9 250 Output Total 1877 900 Balance -54 263.9 250 ICD10 Worksheet Patient Problems: Problems Problem Status Onset Subarachnoid hemorrhage Acute
[2017-04-18] MEDS: ROSUVASTATIN CALCIUM 20 MG TAB PO SCH (20:45)
[2017-04-18] MEDS: MELATONIN 3 MG TAB PO PRN (22:00)
[2017-04-19] MEDS: niMODipine 30 MG CAP PO SCH ×6 (01:34→22:14)
[2017-04-19] MEDS: traMADol 50 MG TAB PO PRN (03:01)
--- NOTE | 2017-04-19 08:24 | HOSPPROG ---
Hospitalist Progress Note Assessment/Plan: Patient is a 67-year-old male with a history of hypertension, hyperlipidemia and BPH presented to the emergency room with a severe headache. On admission, he had a stat head CT which showed a subarachnoid hemorrhage. He was seen and evaluated by neurosurgery. During his stay he had an abrupt mental status change and became unresponsive. There is concern of a stroke. He had a stat head CT which showed moderate hydrocephalus likely obstructive in nature related to subarachnoid hemorrhage. Today is my 1st encounter with the patient. Chart reviewed. *SAH with hydrocephalus: goal SBP <140. PRN anti-hypertensives, nimodipine dexamethasone taper *Hyponatremia: likely secondary to SAH Fluid restriction *Acute encephalopathy: resolved *constipation: increase miralax to bid scheduled resolved *HLD: statin *BPH: home med *FREEMAN: improved but ongoing encouraged him to sleep w the hob up due to increasing Intracranial pressures *Afib: prior ablation * DVT ppx; SCDs *dc per neurosurgery/ would recommend cont fluid restrictions/ will recheck chemistry today Subjective: Mark has a mild headache, this is well relieved with medications. Objective: Vital Signs Temp Pulse Resp BP Pulse Ox 36.9 C 49 L 16 120/87 H 95 04/19/17 04:00 04/19/17 04:00 04/19/17 04:00 04/19/17 04:00 04/19/17 04:00 Laboratory Results 04/10/17 04:05 04/17/17 05:50 04/18/17 04/19/17 04/20/17 05:59 05:59 05:59 Intake Total 1163.9 900 Output Total 900 550 Balance 263.9 350 - Physical Exam Constitutional: no apparent distress, appears nourished, not in pain Eyes: PERRL Ears, Nose, Mouth, Throat: hearing normal Cardiovascular: regular rate and rhythym Respiratory: no respiratory distress Gastrointestinal: normoactive bowel sounds Skin: warm, normal color Musculoskeletal: full muscle strength, no muscle tenderness Neurologic: AAOx3, sensation intact bilaterally Psychiatric: interacting appropriately ICD10 Worksheet Patient Problems: Problems Problem Status Onset Subarachnoid hemorrhage Acute
[2017-04-19] MEDS: DEXAMETHASONE 4 MG TAB PO SCH ×2 (08:59→20:31)
[2017-04-19] MEDS: FENOFIBRATE 145 MG TAB PO SCH (08:59)
[2017-04-19] MEDS: CETIRIZINE 10 MG TAB PO SCH (09:00)
[2017-04-19] MEDS: MONTELUKAST SODIUM 10 MG TAB PO SCH (09:00)
[2017-04-19] MEDS: NEBIVOLOL HCL 5 MG TAB PO SCH (09:01)
[2017-04-19] MEDS: METHOCARBAMOL 750 MG TAB PO SCH ×3 (09:01→22:14)
[2017-04-19] MEDS: SENNOSIDES/DOCUSATE SODIUM TAB PO SCH ×2 (09:04→20:31)
[2017-04-19] MEDS: POLYETHYLENE GLYCOL 3350 17 GM PKT PO SCH ×2 (09:04→20:31)
--- NOTE | 2017-04-19 10:39 | SOAPPROG ---
SOAP Progress Note Assessment/Plan: Assessment:Local Qi and Blood stagnation, some preexisting, partly aggravated by inactivity Plan: Regulate Qi and Blood, relieve pain. Treat daily while in hospital, as long as symptoms are present, follow up after discharge. Treatment: LI 4, Sp 10, Octavia 7, GB 34, B 57; Local treatments: L4, L5 huatojiaji, B 27, C 6,C7 tana, Left BL 10. Retain needles for about 45 mins, with additional manipulation about every 10- 15 minutes, follow up with some gentle Shiatsu on neck (pressing muscles posterior neck to help relax and relieve pain.) 04/19/17 10:41 Subjective: Patient reports that he had a good BM, then another. Headaches remain, though not severe. Also neck pain, better after treatments, but return, worse in mornings. Low back pain and stiffness, calf tightness. Still upbeat and positive , grateful to have a good prognosis, though aware that recovery will take longer than he would like. Objective: Vital Signs Temp Pulse Resp BP Pulse Ox 36.2 C 52 L 12 141/78 H 96 04/19/17 08:00 04/19/17 08:00 04/19/17 08:00 04/19/17 08:00 04/19/17 08:00 Laboratory Results 04/10/17 04:05 04/17/17 05:50 04/18/17 04/19/17 04/20/17 05:59 05:59 05:59 Intake Total 1163.9 900 337 Output Total 900 550 Balance 263.9 350 337 On palpation, low back has some tenderness, neck also tender, with spasm in posterior cervical muscles, more on R side (5/10). ICD10 Worksheet Patient Problems: Problems Problem Status Onset Subarachnoid hemorrhage Acute
[2017-04-19 11:23] LABS: ANION GAP 12 mEq/L (8-16); CALCIUM 9.3 mg/dL (8.5-10.4); CARBON DIOXIDE 22 mEq/l (22-31); CHLORIDE 93 mEq/L (97-110); GLOMERULAR FILTRATION RATE > 60; GLUCOSE 120 mg/dL (70-100); POTASSIUM 4.6 mEq/L (3.5-5.2); SODIUM 127 mEq/L (134-144)
--- NOTE | 2017-04-19 12:00 | SOAPPROG ---
SOAP Progress Note Assessment/Plan: Assessment: 67 yo M with SAH Plan: neuro: stable, continued headaches off/on hyponatremia: Na at 127 this am likely dc home and Fu with Dr Richard next week on nimodipine for vasospam prophylaxis scd/domenico for dvt prophylaxis please call with neuro changes discussed with Dr Richard 04/09/17 07:54 04/09/17 08:27 04/09/17 08:31 04/14/17 10:40 04/19/17 11:58 Subjective: mild headaches, no N/V. No weakness Objective: Vital Signs Temp Pulse Resp BP Pulse Ox 36.2 C 52 L 12 141/78 H 96 04/19/17 08:00 04/19/17 08:00 04/19/17 08:00 04/19/17 08:00 04/19/17 08:00 Laboratory Results 04/10/17 04:05 04/19/17 10:45 04/18/17 04/19/17 04/20/17 05:59 05:59 05:59 Intake Total 1163.9 900 337 Output Total 900 550 Balance 263.9 350 337 AAOX4, +FC PERRL, EOMI, no facial droop 5/5 + light touch ICD10 Worksheet Patient Problems: Problems Problem Status Onset Subarachnoid hemorrhage Acute
[2017-04-19] MEDS: ROSUVASTATIN CALCIUM 20 MG TAB PO SCH (20:31)
[2017-04-20] MEDS ORDERED: niMODipine 30 MG CAP PO SCH
[2017-04-20] MEDS: niMODipine 30 MG CAP PO SCH ×4 (01:58→13:35)
[2017-04-20] MEDS: NEBIVOLOL HCL 5 MG TAB PO SCH (07:44)
[2017-04-20] MEDS: MONTELUKAST SODIUM 10 MG TAB PO SCH (07:44)
[2017-04-20] MEDS: CETIRIZINE 10 MG TAB PO SCH (07:44)
[2017-04-20] MEDS: FENOFIBRATE 145 MG TAB PO SCH (07:44)
[2017-04-20] MEDS: METHOCARBAMOL 750 MG TAB PO SCH (07:45)
[2017-04-20] MEDS: SENNOSIDES/DOCUSATE SODIUM TAB PO SCH (07:55)
[2017-04-20] MEDS: POLYETHYLENE GLYCOL 3350 17 GM PKT PO SCH (07:56)
--- NOTE | 2017-04-20 08:37 | HOSPPROG ---
Hospitalist Progress Note Assessment/Plan: Patient is a 67-year-old male with a history of hypertension, hyperlipidemia and BPH presented to the emergency room with a severe headache. On admission, he had a stat head CT which showed a subarachnoid hemorrhage. He was seen and evaluated by neurosurgery. During his stay he had an abrupt mental status change and became unresponsive. There is concern of a stroke. He had a stat head CT which showed moderate hydrocephalus likely obstructive in nature related to subarachnoid hemorrhage. *SAH with hydrocephalus: goal SBP <140. PRN anti-hypertensives, nimodipine dexamethasone taper *Hyponatremia: likely secondary to SAH Fluid restriction/ Reviewed this with the patient the importance of keeping his sodium levels elevated *Acute encephalopathy: resolved *constipation: increase miralax to bid scheduled resolved *HLD: statin *BPH: home med *FREEMAN: improved but ongoing encouraged him to sleep w the hob up due to increasing Intracranial pressures *Afib: prior ablation * DVT ppx; SCDs *dc per neurosurgery/Chintan Trejo and myself met w the patient and his son and / we discussed his OP care, level of activity/ what to take for sleep Subjective: Mark is looking forward to being discharged. Objective: Vital Signs Temp Pulse Resp BP Pulse Ox 36.8 C 52 L 16 127/86 H 92 04/20/17 07:35 04/20/17 07:35 04/20/17 07:35 04/20/17 07:35 04/20/17 07:35 Laboratory Results 04/10/17 04:05 04/20/17 04:16 04/19/17 04/20/17 04/21/17 05:59 05:59 05:59 Intake Total 900 937 Output Total 550 1100 500 Balance 350 -163 -500 - Physical Exam Constitutional: no apparent distress, appears nourished, not in pain Eyes: PERRL Ears, Nose, Mouth, Throat: hearing normal Respiratory: no respiratory distress Skin: warm, other (stitches on top of his head) Musculoskeletal: full muscle strength, no muscle tenderness Neurologic: AAOx3 Psychiatric: interacting appropriately, not anxious, not encephalopathic ICD10 Worksheet Patient Problems: Problems Problem Status Onset Subarachnoid hemorrhage Acute
[2017-04-20] MEDS ORDERED: DEXAMETHASONE 2 MG TAB PO SCH (09:00)
[2017-04-20 11:54] VITALS: BP 128/72; PULSE 55; RESP 14; TEMP 99.3; O2SAT 94
--- NOTE | 2017-04-20 12:16 | SOAPPROG ---
SOAP Progress Note Assessment/Plan: Assessment: 67 yo M with SAH Plan: neuro: stable, continued headaches off/on hyponatremia: Na at 128 this am likely dc home and Fu with Dr Richard next week on nimodipine for vasospam prophylaxis scd/domenico for dvt prophylaxis please call with neuro changes discussed with Dr Richard 04/09/17 07:54 04/09/17 08:27 04/09/17 08:31 04/14/17 10:40 04/19/17 11:58 04/20/17 12:15 Subjective: no headaches, no N/V. Objective: Vital Signs Temp Pulse Resp BP Pulse Ox 37.4 C 55 L 14 128/72 H 94 04/20/17 11:50 04/20/17 11:50 04/20/17 11:50 04/20/17 11:50 04/20/17 11:50 Laboratory Results 04/10/17 04:05 04/20/17 04:16 04/19/17 04/20/17 04/21/17 05:59 05:59 05:59 Intake Total 900 937 Output Total 550 1100 500 Balance 350 -163 -500 AAOx4, +FC PERRL, EOMI, no facial droop ROZ x 4 + light touch ICD10 Worksheet Patient Problems: Problems Problem Status Onset Subarachnoid hemorrhage Acute
[2017-04-20] MEDS: traMADol 50 MG TAB PO PRN (13:36)
[2017-04-22] MEDS ORDERED: DEXAMETHASONE 2 MG TAB PO SCH (09:00)
== END 2017-04-20 13:45 | disposition home or self-care (01) | DRG 24 ==
LOC: F2N 12:04 → F3N 04-18 14:19
PROVIDERS: ADMIT Neurological Surgery; ATTEND Neurological Surgery
PROC: B31R1ZZ Fluoroscopy of Intracranial Arteries using Low Osmolar Contrast (ICD-10-PCS; 2017-04-07)
PROC: 009630Z Drainage of Cerebral Ventricle with Drainage Device, Percutaneous Approach (ICD-10-PCS; principal; 2017-04-08)
DX: I60.7 Nontraumatic subarachnoid hemorrhage from unspecified intracranial artery (principal); G91.1 Obstructive hydrocephalus; I10 Essential (primary) hypertension; E22.2 Syndrome of inappropriate secretion of antidiuretic hormone; K59.00 Constipation, unspecified; E78.5 Hyperlipidemia, unspecified; Z79.82 Long term (current) use of aspirin
CPT/HCPCS: 82947-QW; 92507-GN; 92523-GN; 96374; 97112-GP; 97116-GP; 97162-GP; 97166-GO; 97530-GO; 97530-GP; 97532-GO; 97535-GO; A9585; C1769; G8978-GP-CI; G8978-GP-CJ; G8979-GP-CH; G8979-GP-CI; G8987-GO-CI; G8987-GO-CJ; G8988-GO-CI; G9165-GN-CI; G9166-GN-CH; J0360; J0690; J1100; J1170; J1644; J1953; J2250; J2405; J2550; J2704; J3010; Q9967